=== PATIENT | female | born 1945 ===

== ENCOUNTER → 2021-10-14 12:56 | Outpatient (BNVA) | payer OTHER, SELFPAY | PROVIDERS: PCP Internal Medicine; Visit Provider Nurse Practitioner Family | DX: G43.109 Migraine with aura, not intractable, without status migrainosus (principal); G47.00 Insomnia, unspecified | CPT/HCPCS: 99212 ==

== ENCOUNTER → 2021-12-09 13:09 | Outpatient (BNVA) | payer OTHER, SELFPAY | PROVIDERS: PCP Internal Medicine; Visit Provider Nurse Practitioner Family | DX: G43.109 Migraine with aura, not intractable, without status migrainosus (principal); G47.00 Insomnia, unspecified; Z79.899 Other long term (current) drug therapy | CPT/HCPCS: 99212 ==

== ENCOUNTER → 2022-03-17 14:29 | Outpatient (BNVA) | payer OTHER, SELFPAY | PROVIDERS: PCP Internal Medicine; Visit Provider Nurse Practitioner Family | DX: G43.109 Migraine with aura, not intractable, without status migrainosus (principal); G47.00 Insomnia, unspecified; Z79.899 Other long term (current) drug therapy | CPT/HCPCS: 99212 ==

== ENCOUNTER → 2022-09-20 09:03 | Outpatient (BNVA) | payer OTHER, SELFPAY | PROVIDERS: PCP Internal Medicine; Visit Provider Nurse Practitioner Family | DX: G43.109 Migraine with aura, not intractable, without status migrainosus (principal); G47.00 Insomnia, unspecified; E55.9 Vitamin D deficiency, unspecified | CPT/HCPCS: 99212 ==

== ENCOUNTER → 2022-12-22 08:48 | Outpatient (BNVA) | payer OTHER, SELFPAY | PROVIDERS: PCP Internal Medicine; Visit Provider Nurse Practitioner Family | DX: G43.109 Migraine with aura, not intractable, without status migrainosus (principal); R42 Dizziness and giddiness; Z79.899 Other long term (current) drug therapy | CPT/HCPCS: 99212 ==

== ENCOUNTER 2023-06-28 10:28 | Outpatient (AMB) | payer OTHER, SELFPAY ==
[2023-06-28 10:31] VITALS: BP 114/68; PULSE 79; O2SAT 97; BMI 36.1
--- NOTE | 2023-06-28 10:31 | MHC.OFFVIS ---
Intake Vital Signs 06/28/23 10:31 Height 5 ft Weight 185 lb BMI 36.1 BP 114/68 Blood Pressure Location Rt brachial Position Sitting Pulse 79 Pulse Source Pulse Oximeter Pulse Oximetry (%) 97 Oxygen Delivery Method Room Air Intake Visit Reasons: 6m f/u Migraine - Conf w/daughter Intake Note: Pt presents to the office today for a 6 month follow up for migraines. Pt is here with her [employer] Sandra. Pt states her migraines are better than before. Pt states she thinks the medication is helping. Pt states she does get migraines sometimes but states they arent as bad as before. Allergies ibuprofen [From Motrin] Allergy (Verified 06/28/23 10:34) Rash Medication List - Last Reconciled 06/28/23 by ANNEL Taylor acetaminophen ER 0 mg PO atorvastatin 10 mg PO DAILY cholecalciferol (vitamin D3) 10 mcg PO DAILY 30 days clonazepam 1 mg PO BID PRN diclofenac sodium 1% grams topical BID duloxetine mg PO erenumab-aooe (Aimovig Autoinjector) 140 mg subcut ONCE 1 month gabapentin 300 mg PO BEDTIME 28 days hydromorphone 2 mg PO QID PRN lisinopril 20 mg PO DAILY magnesium oxide 400 mg PO BEDTIME 28 days meclizine 12.5 - 25 mg (1 - 2 x 12.5 mg) PO TID PRN 30 days omeprazole 40 mg PO DAILY riboflavin (vitamin B2) (Vitamin B-2) 200 mg (2 x 100 mg) PO BID 28 days rizatriptan 5 - 10 mg (0.5 - 1 x 10 mg) PO Q2H PRN 21 days trazodone ER 150 mg PO DAILY ubrogepant 50 - 100 mg orally at onset of headache, may repat in 2hrs (max 200mg/day); 30 days HPI HPI Comments History of Present Illness Details 77-yr-old female presents for f/u visit. Pt endorses the following interval medical history changes: 2 months ago- she had a slip and fall resulting in right rib Fxs- feeling better now, but still has some occasional discomfort. 4 months ago- underwent left TKR- has healed well. She is still having bouts of dizziness. Using Meclizine occasionally which helps She is having headache, just occasionally and not as strong. She is tolerating the Aimovig well. She is using Tylenol- which does not always help. Has not used Rizatriptan in some time- forgot about it. Has difficulty falling asleep. Does snore Clonazepam helps some. [facility] Medical History (Updated 06/28/23 @ 11:16 by ANNEL Taylor) Migraine with aura, not intractable, without status migrainosus Insomnia High cholesterol Depression Hypertension Arthritis Surgical History (Updated 06/28/23 @ 11:15 by ANNEL Taylor) History of knee replacement Family History Mother Diabetes Household Members: None Housing: Condominium Alcohol intake: never Patient Tobacco Use Status: Never used Tobacco Review of Systems Const All systems reviewed & are unremarkable except as noted in HPI and below Physical Exam Vital Signs: Last Vital Signs Pulse 79 06/28/23 10:31 BP 114/68 06/28/23 10:31 Pulse Ox 97 06/28/23 10:31 Oxygen Delivery Method Room Air 06/28/23 10:31 BMI result Body Mass Index 36.1 Const General: cooperative and no acute distress Orientation/consciousness: patient oriented x3 HEENT Head: Yes normocephalic Resp Effort & Inspection: normal respiratory effort and able to speak in complete sentences Neuro Other: Slow, steady gatit w/ cane General: patient oriented x3 and CN's II-XI intact bilaterally Cognition (Neuro): normal cognition Motor exam (neuro): 5/5 motor strength present throughout Psych Appearance: grossly normal Mental Status: mental status grossly normal Speech and movement: Normal speech and movement present Affect: normal affect Attitude: cooperative Thought process: Normal thought process present Thought content: Normal thought content present Insight: Good insight present (Psych) Judgement: Good judgement present (Psych) Assessment & Plan Assessment & Plan (1) Migraine with aura, not intractable, without status migrainosus: Code(s): G43.109 - Migraine with aura, not intractable, without status migrainosus (2) Vertigo: Code(s): R42 - Dizziness and giddiness (3) Sleep difficulties: Code(s): G47.9 - Sleep disorder, unspecified Plan For vertigo: Continue Meclizine 12.5-25mg prn ? For migraine prevention: Continue Aimovig 140mg sc q month- as pt has good reduction in migriane attacks/burden. Continue Mag and B2. Previous migraine trials: Amitriptyline- not tolerated. Topiramate- not tolerated. Migraine tx contraindications: BBs d/t h/o asthma. ? For acute migraine treatment: Continue Tylenol prn. Resume Rizatripatn, may adjunct w/ Tylenol. Previous trails- Sumatriptan- ineffective. Fioricet- ineffective. ? For sleep: Continue Clonazepam prn for sleep. Sleep hygiene tips in [facility] shared w/ pt. Future considerations- repeating sleep study. ? f/u in 6 months or sooner prn. Coding Level of Care Code Est Pt Level 4 (50232) Diagnoses Migraine with aura, not intractable, without status migrainosus G43.109 Vertigo R42 Sleep difficulties G47.9
== END 2023-06-28 11:12 | disposition home or self-care (01) ==
PROVIDERS: Visit Provider Nurse Practitioner Family
DX: G43.109 Migraine with aura, not intractable, without status migrainosus (principal); R42 Dizziness and giddiness; G47.9 Sleep disorder, unspecified
CPT/HCPCS: 99214

== ENCOUNTER → 2023-06-28 10:28 | Outpatient (BNVA) | payer OTHER, SELFPAY | PROVIDERS: Visit Provider Nurse Practitioner Family | DX: G43.109 Migraine with aura, not intractable, without status migrainosus (principal); R42 Dizziness and giddiness; G47.9 Sleep disorder, unspecified | CPT/HCPCS: 99212 ==

== ENCOUNTER 2023-11-28 11:09 | Outpatient (AMB) | payer OTHER, SELFPAY ==
--- OUTSIDE RECORDS SUMMARY | 2023-11-28 11:12 | XMS_ITS | Continuity of Care Document ---
Author Organization [facility] Address [address] [place] [address]- Care Team Providers Care Bioanalyst Name Role Phone Blaine Jorgensen MD Primary Care Physician [phone] Encounter [facility] Date(s): 04/26/23 - 08/10/23 [facility] [address] [place], [place] [address] Attending Physician: Blaine Jorgensen MD Allergies, Adverse Reactions, Alerts Substance Reaction Severity Status ibuprofen hives Active penicillin Active Immunizations Given and Recorded Vaccine Date Status Refusal Reason influenza virus vaccine, inactivated 05/11/22 Kirby rded influenza virus vaccine, inactivated 05/14/20 Kirby rded influenza virus vaccine, inactivated 06/17/16 Kirby rded [id number] 12y+ bivalent booster vax 05/11/22 Recorded SARS-CoV-2 (COVID-19) mRNA-1273 vaccine 11/06/20 R ecorded pneumococcal 13-valent vaccine 11/17/16 Recorded tetanus/diphtheria/pertussis, acel(Tdap) 11/17/16 Recorded Medications acetaminophen 325 mg oral tablet 650 mg, By Mouth, Every 6 hours, may take OTC. not to exceed 4000 mg/day, Refills 0, Maintenance, 11/11/22 9:25:00 EDT, Partial fill upon patient request if the prescription is for a schedule II opioid drug. Start Date: 11/11/22 Status: Ordered Aimovig SureClick Autoinjector-aooe 140 mg/mL subcutaneous solution = 140 mg, Subcutaneous Injection, Every 28 days, # 1 kit, 5 Refills, Maintenance, 11/03/22 13:09:00EDT, Partial fill upon patient request if the prescription is for a schedule II opioid drug. Start Date: 11/03/22 Status: Ordered atorvastatin 10 mg oral tablet 1 tablet, By Mouth, Daily at bedtime, # 30 tablet, 11 Refills, Maintenance, 06/10/23 22:21:00 EDT, [facility], 144, cm, 04/26/23 8:51:00 EDT, Height, 86.7, kg, 11/10/22 17:31:00 EDT, Dry Weight Start Date: 06/10/23 Stop Date: 06/04/24 Status: Ordered busPIRone 7.5 mg oral tablet 1 tablet = 7.5 mg, By Mouth, 2 times a day, 0 Refills, Maintenance, 02/21/23 21:24:00 EDT, Partial fill upon patient request if the prescription is for a schedule II opioid drug. Start Date: 02/21/23 Status: Ordered clonazePAM 1 mg oral tablet 0 Refills, Maintenance, 04/26/23 9:00:00 EDT, Partial fill upon patient request if the prescriptionis for a schedule II opioid drug. Start Date: 04/26/23 Status: Ordered diclofenac 1% topical gel 1 application, Topically, 4 times a day, # 100 Gm, 3 Refills, Maintenance, 02/21/23 21:25:00 EDT, Gel, [facility], Partial fill upon patient request if the prescription is for a schedule II opioid drug., 144, cm, 02/21/23 11:05:00 EDT, Hei... Start Date: 02/21/23 Status: Ordered docusate sodium 100 mg oral tablet = 100 mg, By Mouth, 2 times a day, # 60 tablet, 0 Refills, Maintenance, 11/12/22 9:06:00 EDT, Tablet, [facility] 3, Partial fill upon patient request if the prescription is for a scheduleII opioid drug., 144, cm, 11/12/22 8:51:00 EDT, Hei... Start Date: 11/12/22 Stop Date: 12/12/22 Status: Ordered duloxetine 60 mg oral enteric coated capsule 1 capsule = 60 mg, By Mouth, Daily, # 7 capsule, 0 Refills, Maintenance, 11/12/22 8:47:00 EDT, Capsule, Partial fill upon patient request if the prescription is for a schedule II opioid drug. Start Date: 11/12/22 Stop Date: 11/19/22 Status: Ordered gabapentin 300 mg oral capsule 300 mg, 1, capsule, By Mouth, 2 times a day, # 14 capsule, Refills 0, Tot. Refills 0, Maintenance, 11/12/22 8:44:00 EDT, Print Requisition, Partial fill upon patient request if the prescription is for a schedule II opioid drug. Start Date: 11/12/22 Stop Date: 11/19/22 Status: Ordered lisinopril 20 mg oral tablet See Instructions, TAKE 1 TABLET BY MOUTH DAILY., # 28 tablet, Refills 11, Tot. Refills 11, Maintenance, 02/21/23 21:20:00 EDT, Instructions Replace Required Details, Route to Pharmacy Electronically,[facility], 144, cm, 02/21/23 11:05:0... Start Date: 02/21/23 Status: Ordered magnesium oxide 400 mg (240 mg elemental magnesium) oral tablet 1 tablet = 400 mg, By Mouth, Daily, # 100 tablet, 0 Refills, Maintenance, 04/21/20 11:37:00 EDT, Tablet Start Date: 04/21/20 Status: Ordered meclizine 12.5 mg oral tablet 1 tablet = 12.5 mg, By Mouth, 3 times a day, PRN for dizziness, # 90 tablet, 1 Refills, Maintenance, 04/26/23 9:06:00 EDT, Tablet, [facility], 144, cm, 04/26/23 8:51:00 EDT, Height, 86.7, kg, 11/10/22 17:31:00 EDT, Dry Weight Start Date: 04/26/23 Status: Ordered omeprazole 40 mg oral enteric coated capsule 1 capsule = 40 mg, By Mouth, Daily, # 90 capsule, 1 Refills, Maintenance, 08/04/23 17:00:00 EST, ECCapsule, [facility], Partial fill upon patient request if the prescription is for aschedule II opioid drug., 144, cm, 04/26/23 8:51:00 EDT... Start Date: 08/04/23 Status: Ordered ProAir HFA 90 mcg/inh inhalation aerosol with adapter 180 mcg, 2, puffs, Inhalation, 4 times a day, # 18 Gm, Refills 6, Tot. Refills 6, Maintenance, 09/24/21 9:02:00 EST, Inhaler, Route to Pharmacy Electronically, [id number], [facility], 152.2, cm, 11/11/20 12:47:00... Start Date: 09/24/21 Status: Ordered Restasis 0.05% ophthalmic emulsion 1 drops, Eyes, Both, Every 12 hours, 0 Refills, Maintenance, 03/08/16 16:09:42 Start Date: 03/08/16 Status: Ordered traZODone 150 mg oral tablet 1 tablet = 150 mg, By Mouth, Daily at bedtime, # 7 tablet, 0 Refills, Maintenance, 11/12/22 8:45:00EDT, Tablet, Partial fill upon patient request if the prescription is for a schedule II opioid drug. Start Date: 11/12/22 Stop Date: 11/19/22 Status: Ordered VITAMIN B-2 TAB 100MG VITAMIN B-2 TAB 100MG, 0 Refills, Maintenance, one daily, 02/21/23 21:24:00 EDT Start Date: 02/21/23 Status: Ordered VITAMIN D3 1,000 UNIT SOFTGEL VITAMIN D3 1,000 UNIT SOFTGEL, 0 Refills, Maintenance, one daily, 02/21/23 21:24:00 EDT Start Date: 02/21/23 Status: Ordered Problem List Condition Confirmation Course Effective Dates Status H ealth Status Informant Anxiety Confirmed Active Weakness generalized Confirmed Active Asthma Confirmed Active Risk for falls Confirmed Active Chronic back pain Confirmed Active Constipation Confirmed Active Depression Confirmed Active Diverticulosis ( and Diverticulitis ) Confirmed 01/22/15 Active GERD (gastroesophageal reflux disease) Confirmed Active Glaucoma Confirmed Active H/O osteopenia Confirmed Active History of tonsillectomy Confirmed Active Hyperlipidemia Confirmed Active HBP (high blood pressure) Confirmed Active Hypertension Confirmed Active Glucose intolerance (impaired glucose tolerance) Confirmed Active Migraine with myofascial component Confirmed 01/05/16 Active MCI (mild cognitive impairment) Confirmed 06/05/15 Active Morbid obesity, BMI unknown Confirmed Active Nephrolithiasis Confirmed Active Osteoarthritis of knee R TKR Confirmed Active Osteoarthritis of left knee Confirmed Active Severe obesity Confirmed Active Social History Social History Type Response Smoking Status Never smoker entered on: 05/13/15 Sex Patient Care team information Care Team Personnel Name: Blaine Jorgensen MD Position: [facility] Physician - Primary Care Member Role: PCP Address: Address: [address] [place] [address] Adult & Pediatric [place], [place] [address] Name: Oanh Leon RN Position: S RN Member Role: Primary Care Nurse Name: Senia Orozco RN Position: [facility] RN Member Role: Primary Care Nurse Name: Ro Chao RN Position: [facility] RN Member Role: Primary Care Nurse Care Team Related Persons Name: KEI ALMARAZ Address: [place] [address] Name: JAMES ALMARAZ Address: [address] [address]
--- OUTSIDE RECORDS SUMMARY | 2023-11-28 11:12 | XMS_ITS | Continuity of Care Document ---
Author Organization [facility] Address [address] [place] [address]- Care Team Providers Care Container Crane Operator Name Role Phone Joslyn WASHINGTON, Blaine Baker Primary Care Physician Encounter [facility] Date(s): 06/09/23 - 07/09/23 [facility] [address] [place], [place] [address] Allergies, Adverse Reactions, Alerts Substance Reaction Severity Status ibuprofen hives Active penicillin Active Immunizations Given and Recorded Vaccine Date Status Refusal Reason influenza virus vaccine, inactivated 05/11/22 Kirby rded influenza virus vaccine, inactivated 05/14/20 Kirby rded influenza virus vaccine, inactivated 06/17/16 Kirby rded [id number] 12y+ bivalent booster vax 05/11/22 Recorded SARS-CoV-2 [...] 0 Refills, Maintenance, 11/12/22 9:06:00 EDT, Tablet, [facility] 3, Partial fill upon patient request [...] Required Details, Route to Pharmacy Electronically,[facility], 144, cm, 02/21/23 11:05:0... Start Date: [...] Daily, # 90 capsule, 1 Refills, Maintenance, 02/17/23 16:24:00 EDT, ECCapsule, [facility], Partial fill upon patient request if the prescription is for aschedule II opioid drug., 144, cm, 11/13/22 6:44:00 EDT... Start Date: 02/17/23 Status: Ordered ProAir HFA 90 mcg/inh inhalation aerosol with adapter 180 mcg, 2, puffs, Inhalation, 4 times a day, # 18 Gm, Refills 6, Tot. Refills 6, Maintenance, 09/24/21 9:02:00 EST, Inhaler, Route to Pharmacy Electronically, [id number], [facility], 152.2, cm, 11/11/20 12:47:00... [...] Team Personnel Name: Blaine Jorgensen MD Position: [facility] Physician - Primary Care Member Role: PCP Address: Address: [address] [place] [address] Adult & Pediatric Medicine [place], [place] [address] Name: Oanh Leon RN Position: S RN Member Role: Primary Care Nurse Name: Senia Orozco RN Position: S RN Member Role: Primary Care Nurse Name: Ro Chao RN Position: S RN Member Role: Primary Care Nurse Care Team Related Persons Name: KEI ALMARAZ Address: [place] [address] Name: JAMES ALMARAZ Address: [address] [address]
--- OUTSIDE RECORDS SUMMARY | 2023-11-28 11:12 | XMS_ITS | Continuity of Care Document ---
Author Organization [facility] Address [address] [place] [address]- Care Team Providers Care Airfield Services Officer Name Role Phone Blaine Jorgensen MD Primary Care Physician Encounter [facility] Date(s): 02/21/23 - 03/23/23 [facility] [address] [place], [place] [address] Allergies, Adverse Reactions, Alerts Substance Reaction Severity Status ibuprofen hives Active penicillin Active Immunizations Given and Recorded Vaccine Date Status Refusal Reason influenza virus vaccine, inactivated 05/11/22 Ikrby rded influenza virus vaccine, inactivated 05/14/20 Kirby rded influenza virus vaccine, inactivated 06/17/16 Kirby rded [id number] 12y+ bivalent booster vax 05/11/22 Recorded SARS-CoV-2 [...] Status: Ordered atorvastatin 10 mg oral tablet See Instructions, TAKE 1 TABLET BY MOUTH DAILY AT BEDTIME, # 28 tablet, 5 Refills, Maintenance, 12/24/22 13:56:00 EDT, [facility], 144, cm, 11/13/22 6:44:00 EDT, Height, 86.7, kg, 11/10/22 17:31:00 EDT, Dry Weight Start Date: 12/24/22 Status: Ordered busPIRone 7.5 mg oral tablet 1 tablet = 7.5 mg, By Mouth, 2 times a day, 0 Refills, Maintenance, 02/21/23 21:24:00 EDT, Partial fill upon patient request if the prescription is for a schedule II opioid drug. Start Date: 02/21/23 Status: Ordered diclofenac 1% topical gel 1 [...] 0 Refills, Maintenance, 11/12/22 9:06:00 EDT, Tablet, [facility] 3, Partial fill upon patient request [...] Required Details, Route to Pharmacy Electronically,[facility], 144, cm, 02/21/23 11:05:0... Start Date: 02/21/23 [...] day, PRN for dizziness, # 90 tablet, 0 Refills, Maintenance, 02/21/23 11:43:00 EDT, Tablet, [facility], 144, cm, 02/21/23 11:05:00 EDT, Height,86.7, kg, 11/10/22 17:31:00 EDT, Dry Weight Start Date: 02/21/23 Status: Ordered omeprazole 40 mg oral enteric [...] 9:02:00 EST, Inhaler, Route to Pharmacy Electronically, [id number], [facility], 152.2, cm, 11/11/20 12:47:00... [...] of left knee Confirmed Active Severe obesity (BMI 35.0-39.9) with comorbidity Confirmed Active Social History Social History Type Response Smoking Status Never smoker entered on: 05/13/15 Sex Patient Care team information Care Team Personnel Name: Blaine Jorgensen MD Position: S Physician - Primary Care Member Role: PCP Address: Address: [address] [place] [address] Adult & [place] [address]- Name: Oanh Leon RN Position: S RN Member Role: Primary Care Nurse Name: Senia Orozco RN Position: S RN Member Role: Primary Care Nurse Name: Ro Chao RN Position: [facility] RN Member Role: Primary Care Nurse Care Team Related Persons Name: RUFINA KEI Address: [place] [address] Name: JAMES ALMARAZ Address: [place] [address]
--- OUTSIDE RECORDS SUMMARY | 2023-11-28 11:12 | XMS_ITS | Continuity of Care Document ---
Author Organization [facility] Address [address] [place] [address]- Care Team Providers Care Bacteriologist Fishery Name Role Phone Blaine Jorgensen MD Primary Care Physician [phone] Encounter [facility] Date(s): 02/07/23 - 03/09/23 [facility] [address] [place], [place] [address] Allergies, Adverse Reactions, Alerts Substance Reaction Severity Status ibuprofen hives Active penicillin Active Immunizations Given and Recorded Vaccine Date Status Refusal Reason influenza virus vaccine, inactivated 05/11/22 Kirby rded influenza virus vaccine, inactivated 05/14/20 Kirby rded influenza virus vaccine, inactivated 06/17/16 Kirby rded [id number] 12y+ bivalent booster vax 05/11/22 Recorded SARS-CoV-2 [...] Refills, Maintenance, 12/24/22 13:56:00 EDT, [facility], 144, cm, 11/13/22 6:44:00 EDT, Height, [...] 0 Refills, Maintenance, 11/12/22 9:06:00 EDT, Tablet, [facility] 3, Partial fill upon patient request [...] Required Details, Route to Pharmacy Electronically,[facility], 144, cm, 02/21/23 11:05:0... Start Date: [...] 9:02:00 EST, Inhaler, Route to Pharmacy Electronically, [id number], [facility], 152.2, cm, 11/11/20 12:47:00... [...] Primary Care Member Role: PCP Address: Address: [address] [place] [address] Adult [place] [address]- Name: Oanh Leon RN Position: S RN Member Role: Primary Care Nurse Name: Senia Orozco RN Position: S RN Member Role: Primary Care Nurse Name: Ro Chao RN Position: [facility] RN Member Role: Primary Care Nurse Care Team Related Persons Name: RUFINA KEI Address: [place] [address] Name: JAMES ALMARAZ Address: [place] [address]
--- OUTSIDE RECORDS SUMMARY | 2023-11-28 11:13 | XMS_ITS | Continuity of Care Document ---
Author Organization [facility] Address [address] [place] [address]- Care Team Providers Care Wig Dresser Name Role Phone Blaine Jorgensen MD Primary Care Physician Encounter [facility] Date(s): 07/11/23 - 08/10/23 [facility] [address] [place], [place] [address] Attending Physician: Ronaldo Dela Cruz Admitting Physician: Ronaldo Dela Cruz Referring Physician: AdmtrRonaldo Allergies, Adverse Reactions, Alerts Substance Reaction Severity Status ibuprofen hives Active penicillin Active Immunizations Given and Recorded Vaccine Date Status Refusal Reason influenza virus vaccine, inactivated 05/11/22 Kirby rded influenza virus vaccine, inactivated 05/14/20 Kirby rded influenza virus vaccine, inactivated 06/17/16 Kirby rded [id number] 12y+ bivalent booster vax 05/11/22 Recorded SARS-CoV-2 [...] Refills, Maintenance, 11/12/22 9:06:00 EDT, Tablet, [facility] 3, Partial fill upon patient [...] Required Details, Route to Pharmacy Electronically,[facility], 144, cm, 02/21/23 11:05:0... Start Date: 02/21/23 [...] 9:02:00 EST, Inhaler, Route to Pharmacy Electronically, [id number], [facility], 152.2, cm, 11/11/20 12:47:00... [...] Status Never smoker entered on: 05/13/15 Sex Radiology * Event Display: X-Ray Shoulder, Non- Authored Date: * Event Display: X-Ray Ankle/Foot, Non- Authored Date: MG Breast Views * Event Display: MM Mammogram Authored Date: * Event Display: MM Mammogram, Non- Authored Date: Patient Care team information Care Team Personnel Name: Blaine Jorgensen MD Position: [facility] Physician - Primary Care Member Role: PCP Address: Address: [address] [place] [address] Adult & [place] [address]- Name: Oanh Leon RN Position: S RN Member Role: Primary Care Nurse Name: Senia Orozco RN Position: [facility] RN Member Role: Primary Care Nurse Name: Ro Chao RN Position: [facility] RN Member Role: Primary Care Nurse Care Team Related Persons Name: KEI ALMARAZ Address: [place] [address] Name: JAMES ALMARAZ Address: [address] [address]
--- OUTSIDE RECORDS SUMMARY | 2023-11-28 11:13 | XMS_ITS | Continuity of Care Document ---
Author Organization [facility] Address [address] [place] [address]- Care Team Providers Care Cracker Off Name Role Phone Lj [place], Angela Primary Care Physician [phone] [place] [facility] [place]24[place]22 - 01/23/23 [facility] [address] [place] [address]- Allergies, Adverse Reactions, Alerts Substance Reaction Severity Status ibuprofen hives Active penicillin Active Immunizations Given and Recorded Vaccine Date Status Refusal Reason influenza virus vaccine, inactivated 05/11/22 Kirby rded influenza virus vaccine, inactivated 05/14/20 Kirby rded influenza virus vaccine, inactivated 06/17/16 Kirby rded [id number] 12y+ bivalent booster vax 05/11/22 Recorded SARS-CoV-2 [...] Refills, Maintenance, 12/24/22 13:56:00 EDT, [facility], 144, cm, 11/13/22 6:44:00 EDT, Height, 86.7, kg, 11/10/22 17:31:00 EDT, Dry Weight Start Date: 12/24/22 Status: Ordered clonazePAM 1 mg oral tablet 1 tablet = 1 mg, By Mouth, Daily, PRN Anxiety, # 7 tablet, 0 Refills, Maintenance, 11/12/22 8:46:00EDT, Tablet, Partial fill upon patient request if the prescription is for a schedule II opioid drug. Start Date: 11/12/22 Stop Date: 11/19/22 Status: Ordered clonazePAM 1 mg oral tablet 1 tablet = 1 mg, By Mouth, Daily, PRN Anxiety, 0 Refills, Maintenance, 11/11/22 9:25:00 EDT, Tablet, Partial fill upon patient request if the prescription is for a schedule II opioid drug. Start Date: 11/11/22 Status: Ordered Colace Capsule 100 mg, 1, capsule, By Mouth, 2 times a day, Refills 0, Maintenance, 11/12/22 9:05:00 EDT, Partial fill upon patient request if the prescription is for a schedule II opioid drug. Start Date: 11/12/22 Status: Ordered diclofenac 1% topical gel 1 application, Topically, 4 times a day, # 100 Gm, 0 Refills, Maintenance, 11/23/22 16:04:00 EDT, Gel, [facility], Partial fill upon patient request if the prescription is for a schedule II opioid drug., 144, cm, 11/13/22 6:44:00 EDT, Heig... Start Date: 11/23/22 Status: Ordered docusate sodium 100 mg oral tablet = 100 mg, By Mouth, 2 times a day, # 60 tablet, 0 Refills, Maintenance, 11/12/22 9:06:00 EDT, Tablet, [facility], Partial fill upon patient request if the prescription is for a scheduleII opioid drug., 144, cm, 11/12/22 8:51:00 EDT, Hei... Start Date: 11/12/22 Stop Date: 12/12/22 Status: Ordered duloxetine 60 mg oral enteric coated capsule 1 capsule = 60 mg, By Mouth, 2 times a day, # 14 capsule, 0 Refills, Maintenance, 11/12/22 8:47:00 EDT, Capsule, Partial fill upon patient request if the prescription is for a schedule II opioid drug. Start Date: 11/12/22 Stop Date: 11/19/22 Status: Ordered Ecotrin 325 mg oral delayed release tablet 1 tablet = 325 mg, By Mouth, 2 times a day, # 60 tablet, 0 Refills, Maintenance, 11/11/22 9:24:00 EDT, EC Tablet, [facility] 3, Partial fill upon patient request if the prescription is for a schedule II opioid drug., 144, cm, 11/11/22 7:20... Start Date: 11/11/22 Stop Date: 12/11/22 Status: Ordered FeroSul 325 mg oral tablet 1 tablet = 325 mg, By Mouth, 3 times a day, # 90 tablet, 0 Refills, Maintenance, 04/21/20 11:36:00 EDT, Tablet Start Date: 04/21/20 Status: Ordered gabapentin 300 mg oral capsule 300 mg, 1, capsule, By Mouth, 2 times a day, Refills 0, Maintenance, 04/21/20 11:36:00 EDT Start Date: 04/21/20 Status: Ordered gabapentin 300 mg oral capsule 300 mg, 1, capsule, By Mouth, 2 times a day, # 14 capsule, Refills 0, Tot. Refills 0, Maintenance, 11/12/22 8:44:00 EDT, Print Requisition, Partial fill upon patient request if the prescription is for a schedule II opioid drug. Start Date: 11/12/22 Stop Date: 11/19/22 Status: Ordered HYDROmorphone 2 mg oral tablet 1 tablet = 2 mg, By Mouth, Every 4 hours, PRN as needed for pain, # 12 tablet, 0 Refills, Maintenance, 11/28/22 12:25:00 EDT, Tablet, [facility] #[id number], Partial fill upon patient request if the prescription is for a schedule II opioid drug., 144, cm,... Start Date: 11/28/22 Stop Date: 12/01/22 Status: Ordered lisinopril 20 mg oral tablet 20 mg, 1, tablet, By Mouth, Daily, Refills 0, Maintenance, 11/11/22 9:25:00 EDT, Partial fill upon patient request if the prescription is for a schedule II opioid drug. Start Date: 11/11/22 Status: Ordered magnesium oxide 400 mg (240 mg elemental magnesium) oral tablet 1 tablet = 400 mg, By Mouth, Daily, # 100 tablet, 0 Refills, Maintenance, 04/21/20 11:37:00 EDT, Tablet Start Date: 04/21/20 Status: Ordered MiraLax Powder 1 pack/packet = 17 Gm, By Mouth, Daily, PRN Constipation, 0 Refills, Maintenance, 11/11/22 9:26:00 EDT, Powder, Partial fill upon patient request if the prescription is for a schedule II opioid drug. Start Date: 11/11/22 Status: Ordered omeprazole 40 mg oral enteric coated capsule 1 capsule = 40 mg, By Mouth, Daily, # 90 capsule, 1 Refills, Maintenance, 09/30/22 15:58:00 EST, ECCapsule, [facility], Partial fill upon patient request if the prescription is for aschedule II opioid drug., 152.2, cm, 09/30/22 15:33:00... Start Date: 09/30/22 Status: Ordered ProAir HFA 90 mcg/inh inhalation aerosol with adapter 180 mcg, 2, puffs, Inhalation, 4 times a day, # 18 Gm, Refills 6, Tot. Refills 6, Maintenance, 09/24/21 9:02:00 EST, Inhaler, Route to Pharmacy Electronically, [id number], [facility], 152.2, cm, 11/11/20 12:47:00... Start Date: 09/24/21 Status: Ordered Restasis 0.05% ophthalmic emulsion 1 drops, Eyes, Both, Every 12 hours, 0 Refills, Maintenance, 03/08/16 16:09:42 Start Date: 03/08/16 Status: Ordered senna 187 mg oral tablet 1 tablet = 8.6 mg, By Mouth, Daily at bedtime, PRN as needed for constipation, 0 Refills, Maintenance, 11/11/22 9:26:00 EDT, Tablet, Partial fill upon patient request if the prescription is for a schedule II opioid drug. Start Date: 11/11/22 Status: Ordered tiZANidine 2 mg oral tablet 2 mg, 1, tablet, By Mouth, Every 8 hours, PRN, # 21 tablet, Refills 0, Tot. Refills 0, Maintenance,as needed for muscle spasm, 11/12/22 8:43:00 EDT, Print Requisition, Partial fill upon patient request if the prescription is for a schedule II opioid... Start Date: 11/12/22 Stop Date: 11/19/22 Status: Ordered traZODone 150 mg oral tablet 1 tablet = 150 mg, By Mouth, Daily at bedtime, # 7 tablet, 0 Refills, Maintenance, 11/12/22 8:45:00EDT, Tablet, Partial fill upon patient request if the prescription is for a schedule II opioid drug. Start Date: 11/12/22 Stop Date: 11/19/22 Status: Ordered traZODone 50 mg oral tablet 150 mg, 3, tablet, By Mouth, Daily at bedtime, PRN, Refills 0, Maintenance, Insomnia, 11/11/22 9:26:00 EDT, Partial fill upon patient request if the prescription is for a schedule II opioid drug. Start Date: 11/11/22 Status: Ordered Problem List Condition Confirmation Course [...] Care team information Care Team Personnel Name: Oanh Leon RN Position: [facility] RN Member Role: Primary Care Nurse Name: Senia Orozco RN Position: [facility] RN Member Role: Primary Care Nurse Name: Angela Calhoun MD Position: [facility] Physician - Primary Care Member Role: PCP Address: Address: [address] [place] [address] Adult & Pediatric Medicine [place], [place] [address] Name: Ro Chao RN Position: [facility] RN Member Role: Primary Care Nurse Care Team Related Persons Name: KEI ALMARAZ Address: [place] [address] Name: JAMES ALMARAZ Address: [address] [address]
--- OUTSIDE RECORDS SUMMARY | 2023-11-28 11:13 | XMS_ITS | Continuity of Care Document ---
Author Organization [facility] Address [address] [place] [address]- Care Team Providers Care Tube Mounter Name Role Phone Lj [place], Angela Primary Care Physician Encounter [facility] [place] Date(s): 12/16/22 - 01/16/23 [facility] [address] [place], [place] [address] Attending Physician: Leon Herrera MD Allergies, Adverse Reactions, Alerts Substance Reaction Severity Status ibuprofen hives Active penicillin Active Immunizations Given and Recorded Vaccine Date Status Refusal Reason influenza virus vaccine, inactivated 05/11/22 Kirby rded influenza virus vaccine, inactivated 05/14/20 Kirby rded influenza virus vaccine, inactivated 06/17/16 Kibry rded [id number] 12y+ bivalent booster vax 05/11/22 Recorded SARS-CoV-2 [...] Refills, Maintenance, 12/24/22 13:56:00 EDT, [facility], 144, cm, 11/13/22 6:44:00 EDT, Height, [...] 0 Refills, Maintenance, 11/12/22 9:06:00 EDT, Tablet, [facility] 3, Partial fill upon patient [...] Refills, Maintenance, 11/11/22 9:24:00 EDT, EC Tablet, [facility], Partial fill upon patient [...] 0 Refills, Maintenance, 11/28/22 12:25:00 EDT, Tablet, [facility]/pharmacy #[id number], Partial fill upon patient request if [...] 9:02:00 EST, Inhaler, Route to Pharmacy Electronically, [id number], [facility], 152.2, cm, 11/11/20 12:47:00... [...] Response Smoking Status Never smoker entered on: 10/6/15 Sex Patient Care team information Care Team Personnel Name: Oanh Leon RN Position: [facility] RN Member Role: Primary Care Nurse Name: Senia Orozco RN Position: S RN Member Role: Primary Care Nurse Name: Angela Calhoun MD Position: [facility] Physician - Primary Care Member Role: PCP Address: Address: [address] [place] [address] Adult [place] [address]- Name: Ro Chao RN Position: [facility] RN Member Role: Primary Care Nurse Care Team Related Persons Name: KEI ALMARAZ Address: [place] [address] Name: JAMES ALMARAZ Address: [address] [address]
--- OUTSIDE RECORDS SUMMARY | 2023-11-28 11:13 | XMS_ITS | Continuity of Care Document ---
Author Organization [facility] Address [address] [place] [address]- Care Team Providers Care Aircraft Refueller Name Role Phone Blaine Jorgensen MD Primary Care Physician Encounter [facility] Date(s): 08/31/23 - 09/30/23 [facility] [address] [place], [place] [address] Allergies, Adverse Reactions, Alerts Substance Reaction Severity Status ibuprofen hives Active penicillin Active Immunizations Given and Recorded Vaccine Date Status Refusal Reason influenza virus vaccine, inactivated 05/11/22 Kirby rded influenza virus vaccine, inactivated 05/14/20 Kirby rded influenza virus vaccine, inactivated 06/17/16 Kirby rded [id number] 12y+ bivalent booster vax 05/11/22 Recorded SARS-CoV-2 [...] 0 Refills, Maintenance, 11/12/22 9:06:00 EDT, Tablet, [facility] 3, Partial fill upon patient request if [...] Required Details, Route to Pharmacy Electronically[facility], [facility], cm, 02/21/23 11:05:0... Start Date: 02/21/23 Status: Ordered magnesium oxide 400 mg (240 mg elemental magnesium) oral tablet 1 tablet = 400 mg, By Mouth, Daily, # 100 tablet, 0 Refills, Maintenance, 04/21/20 11:37:00 EDT, Tablet Start Date: 04/21/20 Status: Ordered meclizine 12.5 mg oral tablet 1 tablet, By Mouth, 3 times a day, PRN NEEDED FOR DIZZINESS, # 90 tablet, 1 Refills, Maintenance, 09/05/23 9:22:00 EST, [facility], 144, cm, 09/05/23 9:21:00 EST, Height, 86.7, kg,11/10/22 17:31:00 EDT, Dry Weight Start Date: 09/05/23 Status: Ordered Metamucil 3.4 gm/5.2 gm oral powder for reconstitution = 1.7 Gm, By Mouth, Daily, dissolve in 8 oz of fluid, # 425 Gm, 11 Refills, Maintenance, 09/05/23 9:24:00 EST, REC Powder, Partial fill upon patient request if the prescription is for a schedule II opioid drug. Start Date: 09/05/23 Status: Ordered omeprazole 40 mg oral enteric [...] 9:02:00 EST, Inhaler, Route to Pharmacy Electronically, [id number], [facility], 152.2, cm, 11/11/20 12:47:00... [...] Team Personnel Name: Blaine Jorgensen MD Position: [facility] Physician - Primary Care Member Role: PCP Address: Address: [address] [place] [address] Adult & Pediatric Medicine [address] Name: Oanh Leon RN Position: S RN Member Role: Primary Care Nurse Name: Senia Orozco RN Position: [facility] RN Member Role: Primary Care Nurse Name: Ro Chao RN Position: [facility] RN Member Role: Primary Care Nurse Care Team Related Persons Name: KEI ALMARAZ Address: [place] [address] Name: JAMES ALMARAZ Address: [address] [address]
--- OUTSIDE RECORDS SUMMARY | 2023-11-28 11:13 | XMS_ITS | Continuity of Care Document ---
Author Organization [facility] Address [address] [place] [address]- Care Team Providers Care Travel Pta Name Role Phone Blaine Jorgensen MD Primary Care Physician [phone] [id number]12[facility] [address] [place] [address]- Attending Physician: Blaine Jorgensen MD Allergies, Adverse Reactions, Alerts Substance Reaction Severity Status ibuprofen hives Active penicillin Active Immunizations Given and Recorded Vaccine Date Status Refusal Reason influenza virus vaccine, inactivated 05/11/22 Kirby rded influenza virus vaccine, inactivated 05/14/20 Kirby rded influenza virus vaccine, inactivated 06/17/16 Kirby rded [id number] 12y+ bivalent booster vax 05/11/22 Recorded SARS-CoV-2 [...] 0 Refills, Maintenance, 11/12/22 9:06:00 EDT, Tablet, [facility] 3, Partial fill upon patient request [...] Required Details, Route to Pharmacy Electronically,[facility], 144, cm, 02/21/23 11:05:0... Start [...] 9:02:00 EST, Inhaler, Route to Pharmacy Electronically, [id number], [facility], 152.2, cm, 11/11/20 12:47:00... [...] knee Confirmed Active Severe obesity Confirmed Active Vital Signs Most recent to oldest [Reference Range]: 1 2 Height 144 cm (09/05/23 9:21 AM) 144 cm (09/05/23 8:30 AM) Weight 88.5 kg (09/05/23 8:30 AM) Oxygen Saturation [94-100 %] 95 % (09/05/23 8:30 AM) Pulse Rate [55-90 bpm] 95 bpm *H* (09/05/23 8:30 AM) Body Mass Index [18.5-24.99 kg/m2] 42.68 kg/m2 *>HHI* (09/05/23 8:30 AM) Blood Pressure [90-138/55-84 mm Hg] 98/6 8mm Hg (09/05/23 9:21 AM) 140/70mm Hg *H* (09/05/23 8:30 AM) Mode of Delivery (Oxygen) Room air (09/05/23 8:30 AM) Blood pressure sites Arm, left (09/05/23 8:30 AM) Weight Obtained Via Standing scale (09/05/23 8:30 AM) Social History Social History Type Response Smoking Status Never smoker entered on: 05/13/15 Sex Patient Care team information Care Team Personnel Name: Blaine Jorgensen MD Position: [facility] Physician - Primary Care Member Role: PCP Address: Address: [address] [place] [address] Adult & Pediatric Medicine [place], [place] [address] Name: Oanh Leon RN Position: S RN Member Role: Primary Care Nurse Name: Senia Orozco RN Position: [facility] RN Member Role: Primary Care Nurse Name: Ro Chao RN Position: [facility] RN Member Role: Primary Care Nurse Care Team Related Persons Name: RUFINAROZINAET Address: [place] [address] Name: JAMES ALMARAZ Address: [address] [address]
--- OUTSIDE RECORDS SUMMARY | 2023-11-28 11:13 | XMS_ITS | Continuity of Care Document ---
Author Organization [facility] Address [address] [place] [address]- Care Team Providers Care Refrigeration Installer Name Role Phone Blaine Jorgensen MD Primary Care Physician Encounter [facility] Date(s): 02/21/23 - 02/28/23 [facility] [address] [place], [place] [address] Attending Physician: Blaine Jorgensen MD Referring Physician: Angela Calhoun MD Allergies, Adverse Reactions, Alerts Substance Reaction Severity Status ibuprofen hives Active penicillin Active Immunizations Given and Recorded Vaccine Date Status Refusal Reason influenza virus vaccine, inactivated 05/11/22 Kirby rded influenza virus vaccine, inactivated 05/14/20 Kirby rded influenza virus vaccine, inactivated 06/17/16 Kirby rded [id number] 12y+ bivalent booster vax 05/11/22 Recorded SARS-CoV-2 [...] Refills, Maintenance, 12/24/22 13:56:00 EDT, [facility], 144, cm, 11/13/22 6:44:00 EDT, Height, [...] 0 Refills, Maintenance, 11/12/22 9:06:00 EDT, Tablet, [facility] 3, Partial fill upon patient request if [...] Required Details, Route to Pharmacy Electronically,[facility], 144, cm, 02/21/23 11:05:0... Start Date: [...] 9:02:00 EST, Inhaler, Route to Pharmacy Electronically, [id number], [facility], 152.2, cm, 11/11/20 12:47:00... [...] obesity (BMI 35.0-39.9) with comorbidity Confirmed Active Vital Signs Most recent to oldest [Reference Range]: 1 Height 144 cm (02/21/23 11:05 AM) Weight 81.8 kg (02/21/23 11:05 AM) Pulse Rate [55-90 bpm] 80 bpm (02/21/23 11:05 AM) Body Mass Index [18.5-24.99 kg/m2] 39.45 kg/m2 *>HHI* (02/21/23 11:05 AM) Blood Pressure [90-138/55-84 mm Hg] 121/ 79mm Hg (02/21/23 11:05 AM) Blood pressure sites Arm, left (02/21/23 11:05 AM) Weight Obtained Via Standing scale (02/21/23 11:05 AM) Social History Social History Type Response Smoking Status Never smoker entered on: 05/13/15 Sex Note * Vanita Khoury: PERFORM, SIGN, VERIFY Event Display: Patient Education/Instruction Authored Date: [id number] [facility] *[facility] Clinical Summary Name MARI ALMARAZ Age 77 Years 1945 PCP Angela Calhoun MD PCP Visit Date 02/21/2023 10:56:00 Additional Instructions: Scheduled Appointments?? Future Appointments ?*No[facility]Adult[facility]Ped ?[address]??[place],??[place],??[address] ?Phone:??--?Fax:??-- ?Appt. Date:??04/26/2023?8:40 AM ?Scheduled Provider:??Joslyn WASHINGTON, Blaine Baker Follow-Up Instructions ?? Diagnosis Migraine, unspecified, not intractable, without status migrainosus; Hyperlipidemia, unspecified; Essential (primary) hypertension; Unspecified asthma, uncomplicated; Unilateral primary osteoarthritis, unspecified knee; Impaired glucose tolerance (oral) Medications: Please continue your medications until treatment is completed or stopped by your provider. Discuss any questions related to medications with your provider. New Medications [facility], [address] [place] [id number], [phone] Meclizine (meclizine 12.5 mg oral tablet) 1 tab(s) Oral 3 times a day as needed for dizziness. Refills: 0. Next Dose: Medications to Continue with No Changes These medications were not printed or sent to your pharmacy Acetaminophen (acetaminophen 325 mg oral tablet) 650 Milligram Oral every 6 hours. may take OTC. not to exceed 4000 mg/day. Next Dose: Albuterol (ProAir HFA 90 mcg/inh inhalation aerosol with adapter) 2 puff(s) Inhalation 4 times a day. Refills: 6. Next Dose: Aspirin (Ecotrin 325 mg oral delayed release tablet) 1 tab(s) Oral twice a day for 30 Days. Refills: 0. Next Dose: Atorvastatin (atorvastatin 10 mg oral tablet) TAKE 1 TABLET BY MOUTH DAILY AT BEDTIME. Refills: 5. Next Dose: Clonazepam (clonazePAM 1 mg oral tablet) 1 tab(s) Oral Daily as needed Anxiety. Next Dose: Clonazepam (clonazePAM 1 mg oral tablet) 1 tab(s) Oral Daily as needed Anxiety for 7 Days. Refills:0. Next Dose: Cyclosporine Ophthalmic (Restasis 0.05% ophthalmic emulsion) 1 Drops Both eyes every 12 hours. Next Dose: Diclofenac Topical (diclofenac 1% topical gel) 1 lin Topically 4 times a day. Refills: 0. Next Dose: Docusate (Colace Capsule) 100 Milligram Oral twice a day. Next Dose: Docusate (docusate sodium 100 mg oral tablet) 100 Milligram Oral twice a day for 30 Days. Refills: 0. Next Dose: Duloxetine (duloxetine 60 mg oral enteric coated capsule) 1 capsule Oral twice a day for 7 Days. Refills: 0. Next Dose: erenumab (Aimovig SureClick Autoinjector-aooe 140 mg/mL subcutaneous solution) 140 Milligram Subcutaneous Injection Every 28 days. Next Dose: Ferrous Sulfate (FeroSul 325 mg oral tablet) 1 tab(s) Oral 3 times a day. Next Dose: Gabapentin (gabapentin 300 mg oral capsule) 1 capsule Oral twice a day. Next Dose: Gabapentin (gabapentin 300 mg oral capsule) 1 capsule Oral twice a day for 7 Days. Refills: 0. Next Dose: Hydromorphone (HYDROmorphone 2 mg oral tablet) 1 tab(s) Oral every 4 hours as needed as needed for pain for 3 Days. Refills: 0. Next Dose: Lisinopril (lisinopril 20 mg oral tablet) 1 tab(s) Oral Daily. Next Dose: Magnesium Oxide (magnesium oxide 400 mg (240 mg elemental magnesium) oral tablet) 1 tab(s) Oral Daily. Next Dose: Omeprazole (omeprazole 40 mg oral enteric coated capsule) 1 capsule Oral Daily. Refills: 1. Next Dose: Polyethylene Glycol 3350 (MiraLax Powder) 17 gram Oral Daily as needed Constipation. Next Dose: Senna (senna 187 mg oral tablet) 1 tab(s) Oral Daily at Bedtime as needed as needed for constipation. Next Dose: Tizanidine (tiZANidine 2 mg oral tablet) 1 tab(s) Oral every 8 hours as needed as needed for musclespasm for 7 Days. Refills: 0. Next Dose: Trazodone (traZODone 150 mg oral tablet) 1 tab(s) Oral Daily at Bedtime for 7 Days. Refills: 0. Next Dose: Trazodone (traZODone 50 mg oral tablet) 3 tab(s) Oral Daily at Bedtime as needed Insomnia. Next Dose: Allergy Info:?? penicillin; ibuprofen Medications Given This Visit Future Orders ?No future orders Vital Signs Height 144 cm Weight 81.8 kg BMI 39.45 kg/m2 Blood Pressure 121 mm Hg/79 mm Hg Temperature Pulse Rate 80 bpm Respiratory Rate 02 Sat Mode of Delivery / You can now view a summary of your hospital visit from the comfort of your home through a free online portal called [employer]. [employer] is a website that allows you to securely view your medical information including discharge summary, medications and follow-up visits. ??You can alsosend a secure electronic message to your doctor???s office to request appointments, renew medications or just ask a question. You can enroll at [email or web address] or register during your next office visit. Disclaimer:?? The information provided is of a general nature and is intended to be used in conjunction with the recommendations and advice of your health care practitioner. ??Every effort has been made to ensure that the information provided is accurate and complete at the time it is provided to you however, as your needs change, or, as new ??information becomes available, different or additional instructions may be required. If you have questions, please consult with your primary care provider or pharmacist, as appropriate. ??This information is not intended to serve as substitution for assessment and evaluation by a qualified health care provider. If you do not have a primary care provider, you may find a [facility] provider by calling [facility] at [phone]. For information about the plan of care including goals and instructions for your diagnosis, please see the patient education orders section of this document. Patient Education Materials?? The content of this educational material or handout may have been modified, supplemented, or adapted from its original content and format to support your individualized medical care. Patient Care team information Care Team Personnel Name: Blaine Jorgensen MD Position: [facility] Physician - Primary Care Member Role: PCP Address: Address: [address] [place] [address] Adult & Pediatric [address] Name: Oanh Leon RN Position: [facility] RN Member Role: Primary Care Nurse Name: Senia Orozco RN Position: S RN Member Role: Primary Care Nurse Name: Ro Chao RN Position: [facility] RN Member Role: Primary Care Nurse Care Team Related Persons Name: KEI ALMARAZ Address: [place] [address] Name: JAMES ALMARAZ Address: [address] [address]
--- OUTSIDE RECORDS SUMMARY | 2023-11-28 11:13 | XMS_ITS | Continuity of Care Document ---
Author Organization [facility] Address [address] [place] [address]- Care Team Providers Care Workforce Development Vice President Name Role Phone Joslyn WASHINGTON, Blaine Baker Primary Care Physician Encounter [facility] Date(s): 06/01/23 - 07/01/23 [facility] [address] [place] [address]- Allergies, Adverse Reactions, Alerts Substance Reaction Severity Status ibuprofen hives Active penicillin Active Immunizations Given and Recorded Vaccine Date Status Refusal Reason influenza virus vaccine, inactivated 05/11/22 Kirby rded influenza virus vaccine, inactivated 05/14/20 Kirby rded influenza virus vaccine, inactivated 06/17/16 Kirby rded [id number] 12y+ bivalent booster vax 05/11/22 Recorded SARS-CoV-2 [...] 0 Refills, Maintenance, 11/12/22 9:06:00 EDT, Tablet, [facility] 3, Partial fill upon patient request [...] Required Details, Route to Pharmacy Electronically,[facility], 144, cm, 02/21/23 11:05:0... Start [...] 9:02:00 EST, Inhaler, Route to Pharmacy Electronically, [id number], [facility], 152.2, cm, 11/11/20 12:47:00... [...] Team Personnel Name: Blaine Jorgensen MD Position: [facility] Physician - Primary Care Member Role: PCP Address: Address: [address] [place] [address] Adult & Pediatric [place], [place] [address] Name: Oanh Leon RN Position: [facility] RN Member Role: Primary Care Nurse Name: Senia Orozco RN Position: [facility] RN Member Role: Primary Care Nurse Name: Ro Chao RN Position: [facility] RN Member Role: Primary Care Nurse Care Team Related Persons Name: KEI ALMARAZ Address: [place] [address] Name: JAMES ALMARAZ Address: [address] [address]
--- OUTSIDE RECORDS SUMMARY | 2023-11-28 11:13 | XMS_ITS | Continuity of Care Document ---
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 Name Role Phone Blaine Jorgensen MD Primary Care Physician [phone] Encounter [facility] Date(s): 10/06/23 - 10/13/23 [facility] [address] [place], [place] [address] Attending Physician: Blaine Jorgensen MD Allergies, Adverse Reactions, Alerts Substance Reaction Severity Status ibuprofen hives Active penicillin Active Immunizations Given and Recorded Vaccine Date Status Refusal Reason influenza virus vaccine, inactivated 05/11/22 Kirby rded influenza virus vaccine, inactivated 05/14/20 Kirby rded influenza virus vaccine, inactivated 06/17/16 Kirby rded [id number] 12y+ bivalent booster vax 05/11/22 Recorded SARS-CoV-2 [...] 0 Refills, Maintenance, 11/12/22 9:06:00 EDT, Tablet, [facility] 3, Partial fill upon patient request [...] Required Details, Route to Pharmacy Electronically,[facility], 144, cm, 02/21/23 11:05:0... Start Date: 02/21/23 [...] DIZZINESS, # 90 tablet, 1 Refills, Maintenance, 10/06/23 9:12:00 EST, [facility], 144, cm, 10/06/23 8:41:00 EST, Height, 86.7, kg,11/10/22 17:31:00 EDT, Dry Weight Start Date: 10/06/23 Status: Ordered Metamucil 3.4 gm/5.2 gm oral powder for reconstitution = 1.7 Gm, By Mouth, Daily, dissolve in 8 oz of fluid, # 425 Gm, 1 Refills, Maintenance, 10/06/23 9:23:00 EST, REC Powder, [facility], Partial fill upon patient request if the prescription is for a schedule II opioid drug., 144, cm, 2... Start Date: 10/06/23 Status: Ordered omeprazole 40 mg oral enteric [...] 9:02:00 EST, Inhaler, Route to Pharmacy Electronically, [id number], [facility], 152.2, cm, 11/11/20 12:47:00... [...] oldest [Reference Range]: 1 Height 144 cm (10/06/23 8:41 AM) Weight 89 kg (10/06/23 8:41 AM) Oxygen Saturation [94-100 %] 98 % (10/06/23 8:41 AM) Pulse Rate [55-90 bpm] 98 bpm *H* (10/06/23 8:41 AM) Body Mass Index [18.5-24.99 kg/m2] 42.92 kg/m2 *>HHI* (10/06/23 8:41 AM) Blood Pressure [90-138/55-84 mm Hg] 96/5 6mm Hg (10/06/23 8:41 AM) Mode of Delivery (Oxygen) Room air (10/06/23 8:41 AM) Blood pressure sites Arm, left (10/06/23 8:41 AM) Weight Obtained Via Standing scale (10/06/23 8:41 AM) Social History Social History Type Response Smoking Status Never smoker entered on: 05/13/15 Sex Note * Adore Hennessy: PERFORM, SIGN, VERIFY Event Display: Patient Education/Instruction Authored Date: [id number] [facility] *[facility] Adult [facility] Clinical Summary Name MARI ALMARAZ Age 78 Years 1945 PCP Joslyn WASHINGTON, Blaine Baker PCP Visit Date 10/06/2023 08:32:00 Additional Instructions: Scheduled Appointments?? Future Appointments ?No Future Appointments Scheduled Follow-Up Instructions ?? Diagnosis Impaired glucose tolerance (oral); Hyperlipidemia, unspecified; Essential (primary) hypertension Medications: Please continue your medications until treatment is completed or stopped by your provider. Discuss any questions related to medications with your provider. Medications to Continue with No Changes [facility], [address] [place] [id number], [phone] Meclizine (meclizine 12.5 mg oral tablet) 1 tab(s) Oral 3 times a day as needed NEEDED FOR DIZZINESS. Refills: 1. Next Dose: Psyllium (Metamucil 3.4 gm/5.2 gm oral powder for reconstitution) 1.7 gram Oral Daily. dissolve in 8 oz of fluid. Refills: 1. Next Dose: These medications were not printed or sent to your pharmacy Acetaminophen (acetaminophen 325 mg oral tablet) 650 Milligram Oral every 6 hours. may take OTC. not to exceed 4000 mg/day. Next Dose: Albuterol (ProAir HFA 90 mcg/inh inhalation aerosol with adapter) 2 puff(s) Inhalation 4 times a day. Refills: 6. Next Dose: Atorvastatin (atorvastatin 10 mg oral tablet) 1 tab(s) Oral Daily at Bedtime for 30 Days. Refills: 11. Next Dose: BusPIRone (busPIRone 7.5 mg oral tablet) 1 tab(s) Oral twice a day. Next Dose: Clonazepam (clonazePAM 1 mg oral tablet) Next Dose: Cyclosporine Ophthalmic (Restasis 0.05% ophthalmic emulsion) 1 Drops Both eyes every 12 hours. Next Dose: Diclofenac Topical (diclofenac 1% topical gel) 1 lin Topically 4 times a day. Refills: 3. Next Dose: Docusate (docusate sodium 100 mg oral tablet) 100 Milligram Oral twice a day for 30 Days. Refills: 0. Next Dose: Duloxetine (duloxetine 60 mg oral enteric coated capsule) 1 capsule Oral Daily for 7 Days. Refills:0. Next Dose: erenumab (Aimovig SureClick Autoinjector-aooe 140 mg/mL subcutaneous solution) 140 Milligram Subcutaneous Injection Every 28 days. Next Dose: Gabapentin (gabapentin 300 mg oral capsule) 1 capsule Oral twice a day for 7 Days. Refills: 0. Next Dose: Lisinopril (lisinopril 20 mg oral tablet) TAKE 1 TABLET BY MOUTH DAILY.. Refills: 11. Next Dose: Magnesium Oxide (magnesium oxide 400 mg (240 mg elemental magnesium) oral tablet) 1 tab(s) Oral Daily. Next Dose: Miscellaneous Rx (VITAMIN B-2 TAB 100MG) one daily. Next Dose: Miscellaneous Rx (VITAMIN D3 1,000 UNIT SOFTGEL) one daily. Next Dose: Omeprazole (omeprazole 40 mg oral enteric coated capsule) 1 capsule Oral Daily. Refills: 1. Next Dose: Trazodone (traZODone 150 mg oral tablet) 1 tab(s) Oral Daily at Bedtime for 7 Days. Refills: 0. Next Dose: Allergy Info:?? penicillin; ibuprofen Medications Given This Visit Future Orders ?No future orders Vital Signs Height 144 cm Weight 89 kg BMI 42.92 kg/m2 Blood Pressure 96 mm Hg/56 mm Hg Temperature Pulse Rate 98 bpm Respiratory Rate 02 Sat Mode of Delivery 98 %/Room air You can now view a summary of your hospital visit from the comfort of your home through a free online portal called [employer]. [employer] is a website that allows you to securely view your medical information including discharge summary, medications and follow-up visits. ??You can alsosend a secure electronic message to your doctor???s office to request appointments, renew medications or just ask a question. You can enroll at [email or web address] or register during your next office visit. [...] primary care provider, you may find a [facility] provider by calling [facility] at [phone]. [facility], in keeping with [facility] guidance, no longer requires face masks for staff, patientsor visitors in most situations. Similar to time spent indoors at other locations, there is the chance that you were exposed to respiratory viruses during your time with us (such as flu or COVID-19).? If you develop symptoms concerning for a viral respiratory infection, please seek testing (and treatment if indicated) from your medical provider or home test kit. For information about the plan of care [...] Team Personnel Name: Blaine Jorgensen MD Position: [facility] Physician - Primary Care Member Role: PCP Address: Address: [address] [place] [address] Adult & Pediatric Medicine [address] Name: Oanh Leon RN Position: S RN Member Role: Primary Care Nurse Name: Senia Orozco RN Position: [facility] SN RN Member Role: Primary Care Nurse Name: Ro Chao RN Position: S RN Member Role: Primary Care Nurse Care Team Related Persons Name: KEI ALMARAZ Address: [place] [address] Name: JAMES ALMARAZ Address: [place] [address]
--- OUTSIDE RECORDS SUMMARY | 2023-11-28 11:13 | XMS_ITS | Continuity of Care Document ---
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 Name Role Phone Angela Calhoun MD Primary Care Physician Encounter [facility] Date(s): 12/10/22 - 01/09/23 [facility] [address] [place], [place] [address] Allergies, Adverse Reactions, Alerts Substance Reaction Severity Status ibuprofen hives Active penicillin Active Immunizations Given and Recorded Vaccine Date Status Refusal Reason influenza virus vaccine, inactivated 05/11/22 Kirby rded influenza virus vaccine, inactivated 05/14/20 Kirby rded influenza virus vaccine, inactivated 06/17/16 Kirby rded [id number] 12y+ bivalent booster vax 05/11/22 Recorded SARS-CoV-2 [...] Refills, Maintenance, 12/24/22 13:56:00 EDT, [facility], 144, cm, 11/13/22 6:44:00 EDT, Height, 86.7, [...] 0 Refills, Maintenance, 11/12/22 9:06:00 EDT, Tablet, [facility] 3, Partial fill upon patient [...] Refills, Maintenance, 11/11/22 9:24:00 EDT, EC Tablet, [facility] 3, Partial fill upon patient [...] 0 Refills, Maintenance, 11/28/22 12:25:00 EDT, Tablet, [id number], Partial fill upon patient request if [...] 9:02:00 EST, Inhaler, Route to Pharmacy Electronically, [id number], [facility], 152.2, cm, 11/11/20 12:47:00... [...] Team Personnel Name: Oanh Leon RN Position: [facility] RN Member Role: Primary Care Nurse Name: Senia Orozco RN Position: S RN Member Role: Primary Care Nurse Name: Angela Calhoun MD Position: [facility] Physician - Primary Care Member Role: PCP Address: Address: [address] [place] [address] Adult & Pediatric Medicine [place], [place] [address] Name: Ro Chao RN Position: [facility] RN Member Role: Primary Care Nurse Care Team Related Persons Name: KEI ALMARAZ Address: [place] [address] Name: JAMES ALMARAZ Address: [address] [address]
--- OUTSIDE RECORDS SUMMARY | 2023-11-28 11:14 | XMS_ITS | Continuity of Care Document ---
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 Name Role Phone Joslyn WASHINGTON, Blaine Baker Primary Care Physician [phone] Encounter [facility] Date(s): 04/26/23 - 05/03/23 [facility] [address] [place], [place] [address] Attending Physician: Blaine Jorgensen MD Referring Physician: Angela Calhoun MD Allergies, Adverse Reactions, Alerts Substance Reaction Severity Status ibuprofen hives Active penicillin Active Immunizations Given and Recorded Vaccine Date Status Refusal Reason influenza virus vaccine, inactivated 05/11/22 Kirby rded influenza virus vaccine, inactivated 05/14/20 Kirby rded influenza virus vaccine, inactivated 06/17/16 Kirby rded [id number] 12y+ bivalent booster vax 05/11/22 Recorded SARS-CoV-2 [...] 12/24/22 13:56:00 EDT, [facility], 144, cm, 11/13/22 6:44:00 EDT, Height, 86.7, [...] 0 Refills, Maintenance, 11/12/22 9:06:00 EDT, Tablet, [facility], Partial fill upon patient request [...] Route to Pharmacy Electronically,[facility], 144, cm, 02/21/23 11:05:0... Start Date: 02/21/23 [...] Refills, Maintenance, 04/26/23 9:06:00 EDT, Tablet, [facility], 144, cm, 04/26/23 8:51:00 EDT, Height, [...] 9:02:00 EST, Inhaler, Route to Pharmacy Electronically, [id number], [facility], 152.2, cm, 11/11/20 12:47:00... [...] oldest [Reference Range]: 1 Height 144 cm (04/26/23 8:51 AM) Weight 84.1 kg (04/26/23 8:51 AM) Oxygen Saturation [94-100 %] 97 % (04/26/23 8:51 AM) Pulse Rate [55-90 bpm] 65 bpm (04/26/23 8:51 AM) Body Mass Index [18.5-24.99 kg/m2] 40.56 kg/m2 *>HHI* (04/26/23 8:51 AM) Blood Pressure [90-138/55-84 mm Hg] 110/ 74mm Hg (04/26/23 8:51 AM) Mode of Delivery (Oxygen) Room air (04/26/23 8:51 AM) Blood pressure sites Arm, left (04/26/23 8:51 AM) Social History Social History Type Response Smoking Status Never smoker entered on: 05/13/15 Sex Note * Vanita Khoury: PERFORM, SIGN, VERIFY Event Display: Patient Education/Instruction Authored Date: [id number] *[facility] Clinical Summary Name MARI ALMARAZ Age 77 Years 1945 PCP Blaine Jorgensen MD PCP Visit Date 04/26/2023 08:40:00 Additional Instructions: Scheduled Appointments?? Future Appointments ?*[facility] ?[address]??[place],??[place],??[address] ?Phone:??--?Fax:??-- ?Appt. Date:??06/28/2023?11:40 AM ?Scheduled Provider:??Blaine Jorgensen MD Follow-Up Instructions ?? Diagnosis Medications: Please continue your medications until treatment is completed or stopped by your provider. Discuss any questions related to medications with your provider. Medications to Continue with No Changes [facility], [address] [place], [place] [phone], [phone] Meclizine (meclizine 12.5 mg oral tablet) 1 tab(s) Oral 3 times a day as needed for dizziness. Refills: 1. Next Dose: These medications were [...] DAILY AT BEDTIME. Refills: 5. Next Dose: BusPIRone (busPIRone 7.5 mg oral [...] orders Vital Signs Height 144 cm Weight 84.1 kg BMI 40.56 kg/m2 Blood Pressure 110 mm Hg/74 mm Hg Temperature Pulse Rate 65 bpm Respiratory Rate 02 Sat Mode of Delivery 97 %/Room air You can now view a summary of your hospital visit from the comfort of your home through a free online portal called [employer]. [employer] is a website that allows you to securely view your medical information including discharge summary, medications and follow-up visits. ??You can alsosend a secure electronic message to your doctor???s office to request appointments, renew medications or just ask a question. You can enroll at [email or web address] or register during your next office visit. [...] primary care provider, you may find a [facility] provider by calling [facility] [employer] at [phone]. [facility], in keeping with [facility] guidance, no longer requires face masks [...] Primary Care Member Role: PCP Address: Address: [address] [place] [address] Adult [place] [address]- [place] Name: Oanh Leon RN Position: S RN Member Role: Primary Care Nurse Name: Senia Orozco RN Position: S RN Member Role: Primary Care Nurse Name: Ro Chao RN Position: S RN Member Role: Primary Care Nurse Care Team Related Persons Name: KEI ALMARAZ Address: [place] [address] Name: JAMES ALMARAZ Address: [address] [address]
[2023-11-28 11:20] VITALS: BP 116/82; PULSE 92; O2SAT 98; BMI 37.9
--- NOTE | 2023-11-28 11:20 | MHC.OFFVIS ---
Vital Signs 11/28/23 11:20 Height 5 ft Weight 194 lb BMI 37.9 BP 116/82 Blood Pressure Location Rt brachial Position Sitting Pulse 92 Pulse Source Pulse Oximeter Pulse Oximetry (%) 98 Oxygen Delivery Method Room Air Intake Visit Reasons: 5 mo f/u - Migraines-LVM Intake Note: Patient presents for 5 month follow up migraines. Patient has been having horrible migraines radiating to neck. Allergies ibuprofen [From Motrin] Allergy (Verified 11/28/23 11:24) Rash Medication List - Last Reconciled 11/28/23 by ANNEL Taylor acetaminophen ER 0 mg PO atorvastatin 10 mg PO DAILY cholecalciferol (vitamin D3) 10 mcg PO DAILY 30 days clonazepam 1 mg PO BID PRN diclofenac sodium 1% grams topical BID duloxetine mg PO erenumab-aooe (Aimovig Autoinjector) 140 mg subcut ONCE 1 month gabapentin 300 mg PO BEDTIME 28 days hydromorphone 2 mg PO QID PRN lisinopril 20 mg PO DAILY magnesium oxide 400 mg PO BEDTIME 28 days meclizine 12.5 - 25 mg (1 - 2 x 12.5 mg) PO TID PRN 30 days omeprazole 40 mg PO DAILY riboflavin (vitamin B2) (Vitamin B-2) 200 mg (2 x 100 mg) PO BID 28 days rizatriptan 5 - 10 mg (0.5 - 1 x 10 mg) PO Q2H PRN 21 days trazodone ER 150 mg PO DAILY ubrogepant 50 - 100 mg orally at onset of headache, may repat in 2hrs (max 200mg/day); 30 days HPI Comments Details: 78-yr-old female presents for f/u visit. Pt denies any significant interval medical changes. Pt reports a new migarine in the last 3 months. This headcahe is much stronger and the right islam soreness. Pressure, throbbing, shooting pain starts in the right frontal region and runs back through the right islam, right occipital, and right neck. A/w nasal congestion before the headache, photophobia, caity blurry vision, watery eyes, red eyes, phonophobia, nausea, right islam allodynia and swelling and pulsating. Denies facial weakness. This prevents her from sleeping. Can last 12 hrs. Occurs 5-6 times per week. Tylenol has not helped. Has not tried her Rizatriptan- was not always effective. Does not have ubrelvy. Has not been having her typical migraine since resuming Aimovig. Her last Aimovig injection was in October 2023. [facility] Medical History (Updated 11/28/23 @ 12:24 by ANNEL Taylor) Migraine with aura, not intractable, without status migrainosus Insomnia High cholesterol Depression Hypertension Arthritis Surgical History History of knee replacement Family History Mother Diabetes Social History Household Members: None [facility] Alcohol intake: never Patient Tobacco Use Status: Never used Tobacco Physical Exam Vital Signs: Last Vital Signs Pulse 92 11/28/23 11:20 BP 116/82 11/28/23 11:20 Pulse Ox 98 11/28/23 11:20 Oxygen Delivery Method Room Air 11/28/23 11:20 BMI result Body Mass Index 37.9 Const General: cooperative and no acute distress Orientation/consciousness: patient oriented x3 Resp Effort & Inspection: normal respiratory effort and able to speak in complete sentences Neuro General: patient oriented x3 Cranial nerves: Yes CN's II-XII intact bilaterally Cognition (Neuro): normal cognition Psych Appearance: grossly normal Mental Status: mental status grossly normal Speech and movement: Normal speech and movement present Affect: normal affect Attitude: cooperative Assessment & Plan Assessment & Plan (1) Worsening headaches: Code(s): R51.9 - Headache, unspecified Category: Medical (2) Migraine with aura, not intractable, without status migrainosus: Code(s): G43.109 - Migraine with aura, not intractable, without status migrainosus Category: Medical (3) Sleep difficulties: Code(s): G47.9 - Sleep disorder, unspecified Category: Medical Plan For new-onset headache: Pt advised to undergo brain MRI w/o contrast to assess for secondary etiology in a pt of 78 yo. For vertigo: Continue Meclizine 12.5-25mg prn ? For migraine prevention: Continue Aimovig 140mg sc q month- as pt has good reduction in migraine attacks/burden. Continue Mag and B2. Previous migraine trials: Amitriptyline- not tolerated. Topiramate- not tolerated. Migraine tx contraindications: BBs d/t h/o asthma. ? For acute migraine treatment: Continue Tylenol prn. Stop Rizatripatn, may adjunct w/ Tylenol Resume Ubrelvy 100mg prn. Previous trails- Sumatriptan- ineffective. Fioricet- ineffective. ? For sleep: Continue Clonazepam prn for sleep. Future considerations- repeating sleep study. ? f/u in 6 months or sooner prn. Orders: Orders MR head/brain wo con 11/28/23 R51.9 - Headache, unspecified Medications: Changed From ubrogepant (0.5 - 1 x 100 mg) 50 - 100 mg orally at onset of headache, may repat in 2hrs (max 200mg/day); 30 days 16 tabs 6RF To ubrogepant 50 - 100 mg orally at onset of headache, may repat in 2hrs (max 200mg/day); 16 tabs 6RF 30 days From gabapentin 300 mg PO BEDTIME 28 days 28 caps 6RF To gabapentin 300 mg PO BID 56 caps 6RF 28 days Discontinued rizatriptan max 2 tabs per day or 4 tabs per week (May take with Tylenol) Discontinued Reason: Doctor's Order 5 - 10 mg (0.5 - 1 x 10 mg) PO Q2H 21 days PRN 12 tabs 3RF migraine headache Coding Level of Care Code Est Pt Level 4 (90518) Diagnoses Worsening headaches R51.9 Migraine with aura, not intractable, without status migrainosus G43.109 Sleep difficulties G47.9
== END 2023-11-28 12:30 | disposition home or self-care (01) ==
LOC: HO.HSMS 11:10
PROVIDERS: PCP Internal Medicine; Visit Provider Nurse Practitioner Family
DX: R51.9 Headache, unspecified (principal); G43.109 Migraine with aura, not intractable, without status migrainosus; G47.9 Sleep disorder, unspecified
CPT/HCPCS: 99214

== ENCOUNTER → 2023-11-28 11:10 | Outpatient (BNVA) | payer OTHER, SELFPAY | PROVIDERS: PCP Internal Medicine; Visit Provider Nurse Practitioner Family | DX: G43.109 Migraine with aura, not intractable, without status migrainosus (principal); R51.9 Headache, unspecified; G47.9 Sleep disorder, unspecified | CPT/HCPCS: 99212 ==

== ENCOUNTER 2024-02-15 09:14 | Outpatient (REF) | payer OTHER, SELFPAY ==
--- NOTE | ~2024-02-15 | MR_ITS ---
EXAMINATION: MR BRAIN WITHOUT CONTRAST CLINICAL INFORMATION: Headache COMPARISON: None available. TECHNIQUE: MRI of the brain was obtained using routine sequences without contrast. FINDINGS: Ventricles, sulci and cisterns are dilated. Multiple T2 hyperintense focal lesions are seen in bilateral frontal and parietal subcortical and deep white matters. No focal brainstem or cerebellar lesions with abnormal signal can be seen. Diffusion weighted images show no abnormal regional decrease in diffusion. Normal flow voids of major intracerebral blood vessels are seen in the visualized portion. The pituitary gland is markedly attenuated. Optic chiasm is not displaced. Cerebellar tonsils position is normal. MR/MR head/brain wo con IMPRESSION: 1. Age related cerebral atrophy and multifocal ischemic white matter lesions compatible with microangiopathy or demyelinating disease are seen. 2. No acute cerebral infarction is seen. 3. No evidence of space occupying mass lesion could be found. 4. No evidence of intracranial hemorrhage. 5. Empty sella syndrome is present.
== END 2024-02-15 09:15 | disposition home or self-care (01) ==
LOC: HO.MRI 09:14
PROVIDERS: Visit Provider Nurse Practitioner Family
DX: R51.9 Headache, unspecified (principal)
CPT/HCPCS: 70551

== ENCOUNTER 2024-11-28 11:11 | Outpatient (AMB) | payer OTHER, SELFPAY ==
--- NOTE | 2024-11-28 11:32 | A.OFFVIS_ITS ---
Vital Signs 11/28/24 11:35 Weight 213 lb BP 110/70 Pulse 114 H Pulse Source Pulse Oximeter Pulse Oximetry (%) 97 Oxygen Delivery Method Room Air Intake Visit Reasons: 6 month F/U Patient Monitor Required: No Allergies ibuprofen [From Motrin] Allergy (Verified 11/28/24 11:35) Rash Medication List - Last Reconciled 11/28/24 by ANNEL Taylor acetaminophen ER 0 mg PO atorvastatin 10 mg PO DAILY cholecalciferol (vitamin D3) 10 mcg PO DAILY 30 days clonazepam 1 mg PO BID PRN diclofenac sodium 1% grams topical BID duloxetine mg PO erenumab-aooe (Aimovig Autoinjector) 140 mg subcut ONCE 1 month gabapentin 300 mg PO BID 28 days lisinopril 20 mg PO DAILY magnesium oxide 400 mg PO BEDTIME 28 days meclizine 12.5 - 25 mg (1 - 2 x 12.5 mg) PO TID PRN 30 days omeprazole 40 mg PO DAILY riboflavin (vitamin B2) (Vitamin B-2) 200 mg (2 x 100 mg) PO BID 28 days trazodone ER 150 mg PO DAILY ubrogepant 50 - 100 mg orally at onset of headache, may repat in 2hrs (max 200mg/day); 30 days HPI Comments Details: 78-yr-old female presents for f/u visit. Pt denies any significant interval medical changes. She states that she is having generalized joint pain. States her PCP was referring her to Rheumatology, however she thinks she missed the appointment as she did not know where or when the appointment was. Interval brain are MRI showed age-related changes, however no findings to explain patient's worsening of migraine attacks that she had reported at the last visit. Likely, the increase in migraine attacks was due to the labs in her Aimovig therapy at that time. Patient reports that her migraines attacks have improved since the last visit. She is now having about two migraine days per week. Migraine characteristics include: Pressure, throbbing, shooting pain starts in the right frontal region and runs back through the right muslim, right occipital, and right neck. A/w nasal congestion before the headache, photophobia, caity blurry vision, watery eyes, red eyes, phonophobia, nausea, right muslim allodynia and swelling and pulsating. Patient has resumed Aimovig, which she feels is very effective. She states she is tolerating this well without adverse effect. She has not receive the Ubrelvy yet, however it has been approved by her insurance. She does take Tylenol, however it is not very effective. She reports she has occasional dizziness which is responsive to the as needed meclizine. She states she is sleeping well with clonazepam. 02/15/2024, MR/MR head/brain wo con 1. Age related cerebral atrophy and multifocal ischemic white matter lesions compatible with microangiopathy or demyelinating disease are seen. 2. No acute cerebral infarction is seen. 3. No evidence of space occupying mass lesion could be found. 4. No evidence of intracranial hemorrhage. 5. Empty sella syndrome is present. [facility] Medical History (Updated 11/28/23 @ 12:24 by ANNEL Taylor) Migraine with aura, not intractable, without status migrainosus Insomnia High cholesterol Depression Hypertension Arthritis Surgical History History of knee replacement Family History Mother Diabetes Social History Household Members: None Housing: Condominium Alcohol intake: never Patient Tobacco Use Status: Never used Tobacco Physical Exam Vital Signs: Last Vital Signs Pulse 114 H 11/28/24 11:35 BP 110/70 11/28/24 11:35 Pulse Ox 97 11/28/24 11:35 Oxygen Delivery Method Room Air 11/28/24 11:35 Const General: cooperative and no acute distress Orientation/consciousness: patient oriented x3 Resp Effort & Inspection: normal respiratory effort and able to speak in complete sentences Neuro Other: Steady gait with cane General: patient oriented x3 Cranial nerves: Yes CN's II-XII intact bilaterally Cognition (Neuro): normal cognition Psych Appearance: grossly normal Mental Status: mental status grossly normal Speech and movement: Normal speech and movement present Affect: normal affect Attitude: cooperative Assessment & Plan Assessment & Plan (1) Migraine with aura, not intractable, without status migrainosus: Code(s): G43.109 - Migraine with aura, not intractable, without status migrainosus Category: Medical (2) Sleep difficulties: Code(s): G47.9 - Sleep disorder, unspecified Category: Medical (3) Worsening headaches: Code(s): R51.9 - Headache, unspecified Category: Medical Plan Reviewed interval brain MRI results, results of which were consistent with age- related changes but did not show any findings to explain headache symptoms. Patient advised to follow-up with PCP regarding previous referral to Rheumatology. For vertigo: Continue Meclizine 12.5-25mg prn ? For episodic migraine prevention: Continue Aimovig 140mg sc q month- as pt has good reduction in migraine attacks/burden- specifically patient has had greater than 50% reduction in monthly migraine days with starting Aimovig. Continue riboflavin 200 mg twice a day. Continue magnesium oxide 400 mg daily at bedtime. Previous migraine trials: Amitriptyline- not tolerated. Topiramate- not tolerated. Migraine tx contraindications: BBs d/t h/o asthma. ? For acute migraine treatment: Ubrelvy has previously been very effective for patient. Resume Ubrogepant (Ubrelvy) 100mg tab, 1/2 - 1 tab (50-100mg) at onset of headache, may repeat in 2 hours. Max of 2 tabs (200mg) per 24 hours. May adjunct with OTC Tylenol 650-1000mg q 4-6 hours,.Potential adverse effects, include but are not limited to fatigue, nausea, dry mouth, constipation. Patient advised that her Ubrelvy has a prior authorization approval through December of 2024. Order resent to her pharmacy today. When she received Ubrelvy, advised to carry this with her at all times. Advised that she should take it at the very earliest signs of a migraine attack. Previous trails- Sumatriptan- ineffective. Rizatriptan- ineffective Fioricet- ineffective. ? For sleep: Continue Clonazepam prn for sleep. Future considerations- repeating sleep study. ? f/u in 6 months or sooner prn. Medications: Refilled 2 ubrogepant (0.5 - 1 x 100 mg) 50 - 100 mg orally at onset of headache, may repat in 2hrs (max 200mg/day); 30 days 16 tabs 6RF erenumab-aooe (Aimovig Autoinjector) 140 mg(1ml) injection to subcutaneous once a month 140 mg subcut ONCE 1 month 30 mL 11RF Coding Level of Care Code Est Pt Level 4 (05197) Diagnoses Migraine with aura, not intractable, without status migrainosus G43.109 Sleep difficulties G47.9 Worsening headaches R51.9
[2024-11-28 11:35] VITALS: BP 110/70; PULSE 114; O2SAT 97
--- OUTSIDE RECORDS SUMMARY | 2024-11-28 13:31 | XMS_ITS | Data Portability ---
Author Organization [employer] Address [address] [place] [address] Care Team Providers Care Chairman And Chief Executive Officer Name Role Phone HIM CCA OTHER LOUISE CREWS Primary Care Provider Assessment Encounter Date Assessment Date Assessment LastModified by Organization Details LastModified Time 10/16/2024 10/16/2024 Impression: 79yo/f referred for evaluation for several days of body aches, mild headache, generalized weakness and fatigue but also requesting refill of prescribed clonazepam. Patient with hx of anxiety/depress ion, on benzos chronically. States ran out of her prescription medication and does not have refills until next week. For medic on scene patient is awake, alert, in no distress. A/ox3, GCS 15. Described some mild generalized headache, but is well appearing, neuro intact. Neck soft and supple, CV RRR, lungs CTAB, abdomen soft and nontender, no LE edema. Her vitals are very re-assuring, no significant tachycardia or hypertension. She is tolerating PO normally, ambulating at her baseline. No associated chest pain, back pain, dyspnea, palpitations, abdominal pain, syncope. They deny other ROS. Plan: Patient has a re-assuring history and exam, including vitals and a negative covid and flu. No dangerous signs or symptoms on medic evaluation today. Patient will need to obtain refill for her chronic controlled substances through her primary prescribers, I advised they call those prescribers today, I will flag CRC nurses to see if they are able to help connect to PCP office. Patient is stable for continued observation of her symptoms at home, followup with her PMD in 24-48 hours for recheck, and strict instructions to reach out immediately with any acute worsening or change in symptoms. I have a lower clinical suspicion at this time for an occult emergency medical condition such as ACS, PE, aortic dissection, AAA, ICH, CVA, severe benzo withdrawal. Discharged from visit with mandatory timed followup instructions and sdtrict return instructions reviewed. Primary care, consider 24 hour recheck Disposition: We discussed the diagnostic uncertainty of home visits and the risk associated with this. In this case, the patient and I felt this to be an acceptable and reasonable amount of risk given the benefit of avoiding an ED visit. We discussed the need to seek care urgently/emerge ntly in the setting of any new or worsening serious symptoms [email or web address] Not available 10/16/2024 12:45:28 Plan of Treatment Reminders Order Date Submit Date Provider Last Modified By Organization Details Last Modified Time Details Appointments None recorded. Lab rapid SARS CoV 2 Ag, QL IA, respiratory specimen [address], [address] [place] [address] 13:04:24 rapid flu (A+B) [address] [place] [address], [address] [place] [address] 13:04:45 Referral None recorded. Procedures None recorded. Surgeries None recorded. Imaging None recorded. Medication Orders None recorded. Patient TargetsNo targets recorded. Patient InstructionsNo instructions recorded. Reason for Referral None Reported. Results Created Date Observation Date Name Description Value Unit Range Abnormal Flag Note LastModifiedBy Organization Detail LastModifiedTime 10/17/1910/16/2024 rapid flu (A+B) Flu negati ve Not Available [address], [address] [place] [address] 10/16/2024 12:24:35 10/17/1910/16/2024 rapid SARS CoV 2 Ag, QL IA, respi rator y speci men rapid SARS CoV 2 Ag, QL IA, respiratory specimen negati ve Not Available [facility] ed [address] [place] [address], [address] [place] [address] 10/16/2024 12:24:34 Result Notes None recorded. Medical Equipment None Reported. Allergies Allergen ID Allergen Name Allergen Category Reaction Reaction Severity Criticality Documentation Date Start Date Code Code System Note Provider Name and Address Organization Details Recorded Time 67706 Motrin medicatio n Not available Not available Not available 10/16/2024 8 RxNorm Not Available [facility] - production 11:35:18 10001 morphine medicatio n Not available Not available Not available 10/16/2024 7052 RxNorm Not Available [facility] - production 5 11:35:18 Medications Name Sig Start Date Stop Date Status Note LastModified by Organization Details LastModified Time latanoprost 0.005 % eye drops active Not Available Not Available Not Available Vitamin B-2 100 mg tablet active Not Available Not Availabl e Not Available atorvastatin 10 mg tablet active Not Available Not Available Not Available lisinopril 20 mg tablet active Not Available Not Available No t Available clonazepam 0.5 mg tablet TAKE 1 TABLET BY MOUTH ONCE A DAY DIRECTED TOME NATHANIEL TABLETA POR BOCA 6PM active Not Available Not Available No t Available meclizine 12.5 mg tablet active Not Available Not Available No t Available omeprazole 40 mg capsule,delaye d release active Not Available Not Available No t Available Vitamin D3 10 mcg (400 unit) tablet active Not Available Not Available Not Available magnesium oxide 400 mg (241.3 mg magnesium) tablet active Not Available Not Available Not Available trazodone 150 mg tablet TAKE 2 TABLET BY MOUTH AT BEDTIME DIRECTED FOR SLEEP AND MOOD active Not Available Not Available No t Available gabapentin 300 mg capsule active Not Available Not Available N ot Available buspirone 7.5 mg tablet TAKE 1 TABLET BY MOUTH TWICE A DAY NEEDED 20 MIN BEFORE MEALS FOR ANXIETY active Not Available Not Available No t Available Ventolin HFA 90 mcg/actuation aerosol inhaler active Not Available Not Available Not Available cyclobenzaprin e 5 mg tablet active Not Available Not Availabl e Not Available Restasis 0.05 % eye drops in a dropperette active Not Available Not Availabl e Not Available duloxetine 60 mg capsule,delaye d release TAKE 1 CAPSULE BY MOUTH TWICE A DAY FOR MOOD/ANXI ETY AND PAIN active Not Available Not Available No t Available 8 Hour Pain Reliever 650 mg tablet,extende d release active Not Available Not Available No t Available diclofenac 1 % topical gel active Not Available Not Available Not Available Aimovig Autoinjector 140 mg/mL subcutaneous auto-injector active Not Available Not Availabl e Not Available Ubrelvy 100 mg tablet active Not Available Not Available Not Available Genabio COVID-19 Rapid At-Home kit DIRECTED active Not Available Not Available No t Available Vitals Date Recorded Heart rate Respiratory rate Oxygen saturation Oxygen saturation in Arterial blood by Pulse oximetry Body temperature Systolic blood pressure Diastolic blood pressure Provider Name and Address Organization Details Last Updated DateTime 5 86 /min 18 /min 97 % 97 % 98.4 [degF] 136 mm[Hg] 68 mm[Hg] Not Available [facility] 12:21:19 Social History None recorded. Functional Status None recorded. Mental Status None recorded. Family History Nothing Reported. Medical History No medical history recorded. Gynecological HistoryNo gynecological history recorded. Obstetrics History GPAL:G 0 P 0 0 0 0 Past Encounters Encounter ID Performer Location Encounter Start Date Encounter Closed Date Diagnosis/Indication Diagnosis SNOMED-CT Code Diagnosis ICD10 Code Diagnosis Note [id number] Nav Lauren MD [facility] [address] [place] [phone] 10/16/2024 12:21:12 10/17/2024 16:21:03 Generalized aches and pains [id number] R52 Health Concerns Section Related Observation LastModified by Organization Detai ls LastModified Time None Recorded Concern Status LastModified by Organization Details LastModified Time None Recorded Advance Directives Directive None Recorded Payers Encounter Date Sequence Insurance Name Policy Number Policy Barrett Covered Member ID Barrett Member ID Guarantor Name 10/16/2024 1 [facility] - DOS ON OR AFTER 2022 - DUAL ELIGIBLE - FPC OPTIONS AND ONE CARE (MEDICARE REPLACEMENT/ADV ANTAGE - HMO) Natasha Cooley [id number] Natasha Cooley Notes Date Note Type Note Provider Name and Address Organization Details Recorded Time 10/16/2024 text/html CRC Nurse Triage Notes (Ro Cueva): Reason For Request: not feeling well Chief Complaints: Headache, Weakness PMH: Depression, Anxiety Disorder PMH Reviewed at 10/16/2024:34 Allergies Reviewed at 10/16/2024:34 Comments: CHIEF BUILDING INSPECTOR calling to request visit for patient with symptoms of body aches, headache, weakness x1 week. Does not have refill of Clonazapam until the 18th. Requesting dispensing 2-3 pills until the 18th. Patient is a poor historian. No apparent distress. Education provided on the response time and the member was advised to monitor reported s/s and seek emergency treatment if needed. 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 Rapid COVID antigen (12:17:50) COVID: - Attachments uploaded as part of this test result can be found under Documents section. ................... ................... ................... ................... ................... ................... ................... ........ 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 Arrival on scene, patient was found inside home with CHIEF BUILDING INSPECTOR seated in chair alert and oriented x4, patent airway, breathing non labored speaking in complete sentences, skin WPD in no obvious distress. +/= Chest rise. -SOB, -CP, -NVD, -Trauma, -Fever. GCS 15. Language barrier present as both patient and CHIEF BUILDING INSPECTOR speak primarily German. Patient reports that she has been experiencing body aches, headache, and nausea for approximately 5 days. Patient reports that she ran out of her Clonazepam about 3 days ago and is unable to get a refill until 10/23. Patient believes that she is having withdrawals from not having her medication and scheduled visit in hopes of [facility] dispensing medications until she could get a refill. Patient also reports no recent trauma or fevers and reports normal food/fluid intake, medication complaint aside from Clonazepam. Patient vital signs obtained as noted. COVID/FLU POC tests performed and negative for all. [facility] consulted and advised patient that he cannot refill a controlled substance and that she has to contact the prescriber for the Clonazepam. Patient also notified that [facility] does not carry controlled substances either. Red flags discussed with patient and CHIEF BUILDING INSPECTOR, advised to call back or call 911 if condition worsens. [facility]12 clear. [facility] Lab Orders: rapid SARS CoV 2 Ag, QL IA, respiratory specimen: Performed rapid flu (A+B): Performed ................... ................... ................... ................... ................... ................... ................... ........ [facility] Consulted: Nav Lauren ................... ................... ................... ................... ................... ................... ................... ........ Disposition: Fulfilled Nav Lauren MD [address] [facility],[address], [place], [address], [employer] 10/16/2024 12:45:46 OBGyn Episode No OBEpisode recorded.
--- OUTSIDE RECORDS SUMMARY | 2024-11-28 13:31 | XMS_ITS | Clinical Summary ---
Author Organization [facility] Address [address] [place] [address] Phone Care Team Providers Care Recreational Therapist Name Role Phone Celestine Gonzalez MD Primary Care Provider Allergies Active Allergy Reactions Criticality Noted Date Comments Aspirin Nausea And Vomiting 02/26/2013 Duloxetine Itching 11/17/2016 Ibuprofen 06/13/2019 Other Reaction(s): Other (See Comments), Rash/Dermatitis Morphine 08/03/2020 Penicillins 06/13/2019 Other Reaction(s): Hives/Urticaria, Other (See Comments) Encounters Date Type Department Care Team Description 11/12/2024 10:33 AM EDT - 11/12/2024 4:28 PM EDT Emergency [facility] Emergency [address] [place] [address] Discharge Disposition: Left Against Medical Advice from Last 3 Months Surgical History Surgery Date Site/Laterality Comments UPPER GASTROINTESTINAL ENDOSCOPY 01/2000 PROCEDURE: CT UPPER GI ENDOSCOPY PERFORMED; COMMENT: erosion of antrum and hiatal hernia UPPER GASTROINTESTINAL ENDOSCOPY 08/30/2014 PROCEDURE: CT UPPER GI ENDOSCOPY PERFORMED; COMMENT: moderate erosive antral gastritis w/ shallow linear ulcers COLONOSCOPY 01/17/2006 PROCEDURE: HISTORICAL COLONOSCOPY; COMMENT: 6 mm ascending colon polyp resected but not recovered COLONOSCOPY 01/08/2011 PROCEDURE: HISTORICAL COLONOSCOPY; COMMENT: diverticulosis COLONOSCOPY 10/22/2014 PROCEDURE: HISTORICAL COLONOSCOPY; COMMENT: increased diverticulosis CHOLECYSTECTOMY 01/20/2008 PROCEDURE: HISTORICAL CHOLECYSTECTOMY; COMMENT: lap TOTAL KNEE ARTHROPLASTY 2003 Right PROCEDURE: HISTORICAL TOTAL KNEE REPLACE OTHER SURGICAL HISTORY PROCEDURE: HISTORY OTHER; COMMENT: vein ligation TONSILLECTOMY PROCEDURE: HISTORICAL TONSILLECTOMY TUBAL LIGATION PROCEDURE: HISTORICAL TUBAL LIGATION Medical History Medical History Date Comments Anxiety 06/13/2019 DX:Anxiety Depression 06/13/2019 DX:Depression; C OMMENT: Psychiatric admission [place] 2013, [facility] DJD (degenerative joint disease) 06/13/2019 DX:DJD (degenerative joint disease) Erosive esophagitis 06/13/2019 DX:Erosive e sophagitis; COMMENT: On UGI endoscopy 2014 Esophageal stricture 06/13/2019 DX:Esophage al stricture; COMMENT: EGD 05/20/06 tortuous esophagus, > 18 mm stricture LES @ 35 cm, ineffective dilitation at 20 mm Balloon Fibromyalgia 06/13/2019 DX:Fibromyalgia GERD (gastroesophageal reflux disease) 06/13/2019 DX:GERD (gastroesophageal reflux disease) Hiatal hernia 06/13/2019 DX:Hiatal hernia History of total right knee replacement DX:History of total right knee replacement Hypertension 06/13/2019 DX:Hypertension Lumbar disc herniation 06/13/2019 DX:Lumbar disc herniation Migraines 06/13/2019 DX:Migraines; CO MMENT: Neuro at [facility] Morbid obesity with BMI of 4 0.0-44.9, adult ([facility] V24, [facility] V28) 06/13/2019 DX:Morbid obesity wit h BMI of 40.0-44.9, adult ([facility]) Osteoporosis 06/13/2019 DX:Osteoporosis Hyperlipidemia 06/13/2019 DX:Hyperlipidemi a Dysphagia 06/13/2019 DX:Dysphagia Anemia DX:Anemia Asthma DX:Asthma Osteoporosis DX:Osteoporosis Family History Medical History Relation Name Comments No Known Problems Brother 1 No Known Problems Brother 2 Coronary artery disease Father age 100 Diabetes Mother Osteoporosis Mother age 98 Stroke Sister 1 70 Diabetes Sister 2 Diabetes Sister 3 Relation Name Status Comments Brother 1 Brother 2 Father Mother Sister 1 Sister 2 Sister 3 Social History Tobacco Use Types Packs/Day Years Used Date Smoking Tobacco: Never Assessed Alcohol Use Standard Drinks/Week Comments Never 0 (1 standard drink = 0.6 oz pur e alcohol) Comments No Sex and Gender Information Value Date Recorded Sex Assigned at Not on file Legal Sex Female 8:17 PM EST Gender Identity Not on file Sexual Orientation Not on file Obstetrics History Last Filed Vital Signs Vital Sign Reading Time Taken Comments Blood Pressure 142/90 11/12/2024 11:03 AM EDT Pulse 105 11/12/2024 11:03 AM EDT Temperature 36.6 ??C (97.9 ??F) 11/12/2024 11:03 AM E DT Respiratory Rate 20 11/12/2024 11:03 AM EDT Oxygen Saturation 96% 11/12/2024 11:03 AM EDT Inhaled Oxygen Concentration - - Weight 90.7 kg (200 lb) 11/12/2024 11:03 AM EDT Height 121.9 cm (4') 11/12/2024 11:03 AM EDT Body Mass Index 61.03 11/12/2024 11:03 AM EDT Plan of Treatment Health Maintenance Due Date Last Done Comments Zoster Vaccines (1 of 2) 1995 Pneumococcal Vaccine: 50+ Years (2 of 2 - PPSV23) 01/12/2017 11/17/2016 RSV Immunization Adult Patients (1 - 1-dose 75+ series) 2020 Cholesterol Screening (Lipid Panel) 07/10/2022 Colorectal Cancer Screening: Colonoscopy 07/10/2022 Depression Screening 07/10/2022 Falls Risk Assessment 07/10/2022 Hepatitis C Screening 07/10/2022 Medicare Annual Wellness Visit 07/10/2022 Osteoporosis Screening (Bone Density Screening) 07/10/2022 Social Influencers of Health Screening 07/10/2022 Hypertension/CHF/CAD Annual BMP Blood Test 07/22/2022 COVID-19 Vaccine ( season) 2024 05/11/2022, 11/06/2020 DTaP,Tdap,and Td Vaccines (2 - Td or Tdap) 11/17/2026 11/17/2016 Influenza Vaccine Completed 05/25/2024, , 05/14/2020, Additional history exists HIB Vaccines Aged Out No longer eligi ble based on patient's age to complete this topic HPV Vaccines Aged Out No longer eligi ble based on patient's age to complete this topic Hepatitis A Vaccines Aged Out No long er eligible based on patient's age to complete this topic Hepatitis B Vaccines Aged Out No long er eligible based on patient's age to complete this topic IPV Vaccines Aged Out No longer eligi ble based on patient's age to complete this topic MMR Vaccines Aged Out No longer eligi ble based on patient's age to complete this topic Meningococcal ACWY Vaccine Aged Out N o longer eligible based on patient's age to complete this topic Meningococcal B Vaccine Aged Out No l onger eligible based on patient's age to complete this topic RSV Immunization Patients Under 20 months Aged Out No longer eligible based on patient's age to complete this topic Varicella Vaccines Aged Out No longer eligible based on patient's age to complete this topic Procedures Procedure Name Priority Date/Time Associated Diagnosis Comments JENNINGS URINE CULTURE TUBE STAT 11/12/2024 10:52 AM EDT URINALYSIS WITH REFLEX MICROSCOPIC AND CULTURE STAT 11/12/2024 10:52 AM EDT URINALYSIS WITH REFLEX MICROSCOPIC AND CULTURE STAT 11/12/2024 10:52 AM EDT CULTURE URINE STAT 11/12/2024 10:52 AM EDT from Last 3 Months Results * (ABNORMAL) Urinalysis with reflex microscopic and culture (11/12/2024 10:52 AM EDT) Specific [place] Urine 1.016 1.003 - 1.030 LAB URINALYSIS - AUTOMATED METHOD 11/12/2024 11:20 AM [facility] pH, Urine 7.0 5.0 - 8.0 pH LAB URINALYSIS - AUTOMATED METHOD 11/12/2024 11:20 AM [facility] Leukocytes, Urine Moderate(A) Negative LAB URINALYSIS - AUTOMATED METHOD 11/12/2024 11:20 AM [facility] Nitrite, Urine Negative Negative LAB URINALYSIS - AUTOMATED METHOD 11/12/2024 11:20 AM [facility] Protein, Urine Negative <=Trace mg/dL LAB URINALYSIS - AUTOMATED METHOD 11/12/2024 11:20 AM [facility] Glucose, Urine Negative Negative mg/dL LAB URINALYSIS - AUTOMATED METHOD 11/12/2024 11:20 AM [facility] Ketones, Urine Negative Negative mg/dL LAB URINALYSIS - AUTOMATED METHOD 11/12/2024 11:20 AM [facility] Urobilinogen , Urine 0.2 0.2 - 1.0 mg/dL LAB URINALYSIS - AUTOMATED METHOD 11/12/2024 11:20 AM [facility] Bilirubin, Urine Negative Negative LAB URINALYSIS - AUTOMATED METHOD 11/12/2024 11:20 AM [facility] Blood, Urine Negative Negative LAB URINALYSIS - AUTOMATED METHOD 11/12/2024 11:20 AM [facility] RBC, Urine 3.8 0 - 4 /HPF LAB URINALYSIS - AUTOMATED METHOD 11/12/2024 11:20 AM [facility] WBC, Urine 101.2(H) 0 - 4 /HPF LAB URINALYSIS - AUTOMATED METHOD 11/12/2024 11:20 AM [facility] Squamous Epithelial, Urine 8 0 - 60 /LPF LAB URINALYSIS - AUTOMATED METHOD 11/12/2024 11:20 AM [facility] Bacteria, Urine Many(A) Negative /HPF LAB URINALYSIS - AUTOMATED METHOD 11/12/2024 11:20 AM [facility] Hyaline Casts, Urine 1.6 0 - 3 /LPF LAB URINALYSIS - AUTOMATED METHOD 11/12/2024 11:20 AM [facility] Urine Urine specimen obtained by clean catch procedure / Unknown Non-blood Collection / Unknown 11/12/2024 10:52 AM EDT 11/12/2024 11:06 AM EDT us Troy Heredia DO LAB URINE ORDERABLES Final Result [facility] [address] [place] [address], * Jennings urine culture tube (11/12/2024 10:52 AM EDT) Extra Tube Hold for add-ons. 11/12/2024 1:01 PM EDT [facility] Comment:Auto resulted. Urine Urine specimen obtained by clean catch procedure / Unknown Non-blood Collection / Unknown 11/12/2024 10:52 AM EDT 11/12/2024 11:06 AM EDT Troy Heredia DO LAB URINE ORDERABLES Final Result [facility] [address] [place] [address], * (ABNORMAL) Culture urine (11/12/2024 10:52 AM EDT) Pathologist [facility] Culture, Urine >100,000 CFU/mL Proteus mirabilis(A ) MOLLY 11/14/2024 10:26 AM EDT [facility] Comment: Edited result: Previously reported as Proteus species on 11/13/2024 at 0814 EDT. Urine Urine specimen obtained by clean catch procedure / Unknown Non-blood Collection / Unknown 11/12/2024 10:52 AM EDT 11/12/2024 11:20 AM EDT Narrative [facility] - 11/14/2024 10:26 AM EDT Additional colony types present in insignificant amounts. Organism Antibiotic Method Susceptibility Proteus mirabilis Amoxicillin/Clavulanate MOLLY 4 ug/ml: Susceptible Proteus mirabilis Ampicillin/Sulbactam MOLLY <=2 ug/ml: Susceptible Proteus mirabilis Piperacillin/Tazobactam MOLLY <=4 ug/ml: Susceptible Proteus mirabilis Cefazolin (Urine) MOLLY 4 ug/ml: Susceptible Proteus mirabilis Cefoxitin MOLLY 8 ug/ml: Susceptible Proteus mirabilis Ceftazidime MOLLY <=0.5 ug/ml: Susceptible Proteus mirabilis Ceftriaxone MOLLY <=0.25 ug/ml: Susceptible Proteus mirabilis Cefepime MOLLY <=0.12 ug/ml: Susceptible Proteus mirabilis Meropenem MOLLY 1 ug/ml: Susceptible Proteus mirabilis Amikacin MOLLY 4 ug/ml: Susceptible Proteus mirabilis Gentamicin MOLLY <=1 ug/ml: Susceptible Proteus mirabilis Ciprofloxacin MOLLY <=0.06 ug/ml: Susceptible Proteus mirabilis Levofloxacin MOLLY <=0.12 ug/ml: Susceptible Proteus mirabilis Nitrofurantoin MOLLY 128 ug/ml: Resistant Proteus mirabilis Trimethoprim/Sulfamethoxazole MOLLY <=20 ug/ml: Susceptible us Troy Heredia DO LAB MICROBIOLOGY - GENERAL ORDERABLES Final Result [facility] [address] [place] [address], from Last 3 Months Insurance [employer] MEDICARE Member Subscriber Plan / Payer (Ef fective 2024-Present) Name:Natasha Cooley Relation to Subscriber:Self Name:Natasha Cooley Payer ID:[id number] Group ID:Not on file Type:Not on file Address: [place] [address] [address] [id number] Care Teams Recreational Therapist Relationship Specialty Start Date End Date Celestine Gonzalez MD [address] [place] [address] Dr Shakir [place] PCP - General 03/27/13
--- OUTSIDE RECORDS SUMMARY | 2024-11-28 13:32 | XMS_ITS | Referral Summary ---
Author Organization [facility] Address [address] [place] [address] Care Team Providers Care Plant Pathology Teacher Name Role Phone Angela Calhoun MD Primary Care Provider [phone] Allergies Active Allergy Reactions Criticality Noted Date Comments Aspirin Nausea And Vomiting 02/26/2013 Duloxetine Itching 11/17/2016 Ibuprofen Hives,Rash Low 02/26/2013 Morphine Unknown 08/03/2020 Penicillins Rash 10/06/2017 Medications docusate sodium (Colace) 100 mg capsule Take 100 mg by mouth. 3 Active atorvastatin (LIPITOR) 10 mg tablet Take 10 mg by mouth. 2 Active baclofen (LIORESAL) 10 mg tablet Take 10 mg by mouth. Active busPIRone (BUSPAR) 7.5 mg tablet 2 Active Vitamin D3 25 mcg (1,000 unit) capsule 3 Active acetaminophen (TYLENOL) 650 mg 8 hr tablet 3 Active ascorbic acid, vitamin C, (VITAMIN C) 250 mg tablet Take 250 mg by mouth. Active clonazePAM (KlonoPIN) 1 mg tablet Take 1 mg by mouth. 3 Active Restasis 0.05 % ophthalmic emulsion 2 Active diclofenac (VOLTAREN) 1% gel Apply 1 application. topically to the affected area. [address] (CYMBALTA) 60 mg capsule 2 Active gabapentin (NEURONTIN) 300 mg capsule 3 Active HYDROmorphone (DILAUDID) 2 mg tablet SMARTSI Tablet(s) By Mouth Every 4 Hours PRN 3 Active latanoprost (XALATAN) 0.005% ophthalmic solution SMARTSIG:In Eye(s) 2 Active lisinopriL (PRINIVIL,ZESTR IL) 20 mg tablet Take 20 mg by mouth. 2 Active magnesium oxide (MAG-OX) 400 mg (241.3 mg mag) tablet 2 Active omeprazole (PriLOSEC) 20 mg capsule Take 20 mg by mouth. Active Stimulant Laxative Plus 8.6-50 mg 3 Active traZODone (DESYREL) 150 mg tablet 150 mg. 2 Active Social History Tobacco Use Types Packs/Day Years Used Date Smoking Tobacco: Never Smokeless Tobacco: Never Tobacco Cessation:Counseling Given: Not Answered Alcohol Use Standard Drinks/Week Comments Not Currently 0 (1 standard drink = 0.6 oz pur e alcohol) Comments Unknown Sex and Gender Information Value Date Recorded Sex Assigned at Not on file Legal Sex Female 11:50 AM EDT Gender Identity Not on file Sexual Orientation Not on file Plan of Treatment Not on file Insurance [id number] [place] [address] [facility] Care Teams Plant Pathology Teacher Relationship Specialty Start Date End Date Angela Calhoun MD [address] [place] [address] PCP - General 10/19/22
--- OUTSIDE RECORDS SUMMARY | 2024-11-28 13:32 | XMS_ITS ---
Author Organization [facility] on Care Team Providers Care Wax Molder Name Role Phone Mindy Salguero Unavailable Unavailable Oanh Parker Unavailable Unavailable Ana Rosa Wheatley Unavailable Unavailable Allergies and adverse reactions Code CodeSystem Substance Reaction Severity StartDate Concern Status 672309949 SNOMED CT Penicillins Unknown 08/03/2020 activ e 7052 RXNORM Morphine Unknown 08/03/2020 active 5640 RXNORM Ibuprofen Unknown 08/03/2020 active Care Team Name Role Address Phone Organization Dates Oanh Parker PCP [address] [place], [address], [place] (Office): : [facility] [place] 08/03/2020 - 08/12/2020 Mindy Salguero Attending Physician [address] [place], [address], [place] (Office): : [facility] [place] 08/03/2020 - 08/12/2020 Ana Rosa Wheatley Attending Physician [address], [place], [address], [place] (Office): [facility] [place] 08/03/2020 - 08/12/2020 Immunizations Immunization Status Vaccine Details Vaccine Code CodeSystem Micheal e Notes TB 2 Step Mantoux Skin Test completed tuberculin skin test; unspecified formulation lotNumber: [id number] expiry: 04/26/2022 Mfg: [employer]of[employer] Given 0.1 ml Left Forearm intradermally Step 1 of Multi-step 98 CVX created date: 08/05/2020 consent date: 08/05/2020 administere d date: 08/05/2020 Mental Status Section Date Assessment Total Score Description 08/12/2020 BIMS 14 cognitively int act CAM 0 No delirium ind icated PHQ-9 04 minimal depress ion Problems Problem # Description Date of onset Resolved Date Code CodeSystem Concern Status 1 ANEMIA, UNSPECIFIED 08/03/[address] active 2 ATHEROSCLEROTIC HEART DISEASE OF [place] CORONARY ARTERY WITHOUT ANGINA PECTORIS 08/03/[id number] active 3 FIBROMYALGIA 08/03/[address] active 4 HYPERLIPIDEMIA, UNSPECIFIED 08/03/[address] active 5 MAJOR DEPRESSIVE DISORDER, SINGLE EPISODE, UNSPECIFIED 08/03/[address] active 6 SPINAL STENOSIS, CERVICAL REGION 08/03/[address] active 7 SPRAIN OF UNSPECIFIED SITE OF RIGHT KNEE, SUBSEQUENT ENCOUNTER 08/03/[address] active Reason for Referral No Reasons for Referral Entered Social History Social History Observation Description Start Date End Date Code Code System Current Smoking Status Tobacco smoking consumption unknown 806163761 SNOMED CT Sex Assigned At Female 1945 28983-7 [facility] Vital Signs Code Code System Vitals Name Values and Units Timing Information 9279-1 LOINC Respiratory Rate Value=18.0 Units=/m in 08/12/2020 8310-5 INC Body Temperature Value=97.2 Units=?? F 08/12/2020 8867-4 LOINC Heart rate Value=84.0 Units=/min 12/2020 8462-4 LOINC Blood Pressure-Diastolic Value=70 Un its=mmHg 08/12/2020 8480-6 LOINC Blood Pressure-Systolic Qzuls=577 Un its=mmHg 08/12/2020 34190-[facility] % BldC Oximetry Value=93.0 Units= % 08/12/2020 57688-1 LOINC Pain Level Value=0.0 08/12/2020 75165-6 LOINC Weight Aiuvi=456.0 Units=Lbs 8302-2 LOINC Height Value=60.0 Units=Inches 08/03/2020
--- OUTSIDE RECORDS SUMMARY | 2024-11-28 13:32 | XMS_ITS | Clinical Summary ---
Author Organization [facility] Address [address] [place] [address] Care Team Providers Care Silk Finisher Name Role Phone Unavailable Primary Care Provider Unavailabl e Allergies Active Allergy Reactions Criticality Noted Date Comments Aspirin Nausea And Vomiting 02/26/2013 Duloxetine Itching 11/17/2016 Ibuprofen Other (See Comments) 06/13/2019 Morphine 08/03/2020 Penicillins Other (See Comments) 06/13/2019 Medications Medication Sig Dispensed Refills Start Date End Date Status albuterol 108 (90 Base) MCG/ACT inhaler Inhale 2 puffs into the lungs. 0 09/24/2021 Active acetaminophen (TYLENOL) 325 MG tablet Take 650 mg by mouth. 0 09/24/2021 Active ascorbic acid (VITAMIN C) 250 MG tablet Take 250 mg by mouth. 0 Active atorvastatin (LIPITOR) tablet 10 mg 0 01/12/2022 Active baclofen (LIORESAL) 10 MG tablet Take 10 mg by mouth. 0 Active clonazePAM (KlonoPIN) 1 MG tablet 0 12/21/2021 Active Diclofenac Sodium 1 % GEL 0 01/01/2022 Active DULoxetine (CYMBALTA) DR capsule 60 mg 0 01/12/2022 Active Aimovig SOAJ 0 12/09/2021 Active ferrous sulfate 325 (65 FE) MG tablet Take 325 mg by mouth. 0 04/21/2020 Active lisinopril (PRINIVIL,ZESTRIL) tablet 20 mg 0 01/12/2022 Active magnesium oxide 400 (240 Mg) MG TABS tablet 0 01/12/2022 Active meclizine (ANTIVERT) 12.5 MG tablet Take 1-2 tablets by mouth. 0 04/21/2020 Active omeprazole (PriLOSEC) 20 MG capsule Take 20 mg by mouth. 0 Active traZODone (DESYREL) 150 MG tablet 0 01/12/2022 Active zolpidem (AMBIEN) 10 MG tablet Take 1 tablet by mouth every night at bedtime as needed. 0 Active busPIRone (BUSPAR) 7.5 MG tablet 0 03/18/2022 Active fluticasone (FLOVENT HFA) 220 MCG/ACT inhaler Inhale 1 puff into the lungs. 0 06/23/2017 Active gabapentin (NEURONTIN) 300 MG capsule Take 300 mg by mouth. 0 04/21/2020 Active magnesium oxide (MAG-OX) 400 MG tablet Take 400 mg by mouth. 0 05/27/2017 Active mirtazapine (REMERON) 7.5 MG tablet 0 12/26/2016 Active Riboflavin (Vitamin B-2) 100 MG TABS Take 1 tablet by mouth. 0 Active Active Problems Problem Noted Date Diagnosed Date Arthritis of knee, left 04/29/2022 Family History Medical History Relation Name Comments Diabetes Mother Diabetes Sister Relation Name Status Comments Mother Sister Social History Tobacco Use Types Packs/Day Years Used Date Smoking Tobacco: Never Assessed Sex and Gender Information Value Date Recorded Sex Assigned at Not on file Gender Identity Not on file Sexual Orientation Not on file Job Start Date Occupation Industry Not on file Not on file Not on file Last Filed Vital Signs Vital Sign Reading Time Taken Comments Blood Pressure - - Pulse - - Temperature - - Respiratory Rate - - Oxygen Saturation - - Inhaled Oxygen Concentration - - Weight 91.6 kg (202 lb) 04/29/2022 9:35 AM EDT Height 121.9 cm (4') 04/29/2022 9:35 AM EDT Body Mass Index 61.64 04/29/2022 9:35 AM EDT Plan of Treatment Health Maintenance Due Date Last Done Comments Hepatitis C Screening 1945 COVID-19 Vaccine (#1) 01/26/1946 Depression Screening 1957 BMI Counseling 1963 Preventative Health Evaluation 1963 Shingrix-Zoster Vaccine (1 o f 2) 1995 Fall Risk Assessment 2010 Osteoporosis Screening (DEXA Scan) 2010 Pneumococcal Vaccine (2 of 2 - PPSV23 or PCV20) 11/17/2017 11/17/2016 RSV Adult > 60+ Yrs or (1 - 1-dose 75+ series) 2020 Influenza Vaccine (#1) 2024 0, 06/17/2016, 04/20/2013 DTap / Tdap / Td (2 - Td or Tdap) 11/17/2026 11/17/2016 Hepatitis B Vaccines Aged Out No long er eligible based on patient's age to complete this topic RSV Ped < 20 months Aged Out No longe r eligible based on patient's age to complete this topic
--- OUTSIDE RECORDS SUMMARY | 2024-11-28 13:32 | XMS_ITS | Clinical Summary ---
Author Organization [facility] Address [address] [place] [address] Care Team Providers Care Pcu Rn Name Role Phone Angela Calhoun MD Primary Care Provider [phone] Allergies Active Allergy Reactions Criticality Noted Date [...] Orientation Not on file Plan of Treatment Health Maintenance Due Date Last Done Comments Hepatitis C Screening 1945 Osteoporosis Screening 1995 Zoster Vaccines (1 of 2) 1995 Pneumococcal Vaccine: 50+ Years (2 of 2 - PPSV23) 01/12/2017 11/17/2016 RSV Vaccine (60+ years old and patients) (1 - 1-dose 75+ series) 2020 COVID-19 Vaccine ( season) 2024 05/11/2022, 11/06/2020 Alcohol/Substance Use Screening 08/08/2024 Depression Screening and Follow-Up 08/08/2024 Health Care Proxy Review 08/08/2024 Social Drivers of Health Annual Screening 08/08/2024 Influenza Vaccine (Season Ended) 2025 05/11/2022, 05/11/2022, 05/14/2020, Additional history exists DTaP,Tdap,and Td Vaccines (2 - Td or Tdap) 11/17/2026 11/17/2016 Hepatitis B Vaccines Aged Out No long er eligible based on patient's age to complete this topic Insurance [facility] [place] [id number] Care Teams Pcu Rn Relationship Specialty Start Date End Date Angela Calhoun MD [facility] [place] [address] PCP - General 10/19/22
--- OUTSIDE RECORDS SUMMARY | 2024-11-28 13:32 | XMS_ITS | Clinical Summary ---
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 Name Role Phone Unavailable Primary Care Provider Unavailabl e Source Comments PLEASE NOTE, if this patient is a minor, it may be UNLAWFUL to discuss sensitive information that is contained in these records (such as FAMILY PLANNING, MENTAL HEALTH or SUBSTANCE ABUSE) with the minor patient's parent or other person without the patient's specific authorization.[facility] Allergies Active Allergy Reactions Criticality Noted Date Comments Aspirin Nausea and Vomiting 02/26/2013 Duloxetine Itching 11/17/2016 Ibuprofen Hives Low 02/26/2013 Penicillins Rash 10/06/2017 Medications albuterol (ACCUNEB) 1.25 mg/3 mL nebulizer solutionIndication s:bronchospasm prevention Take 3 mL by nebulization every 6 (six) hours as needed for wheezing or shortness of breath. Indications: Bronchospasm Prevention 120 mL 0 06/17/20 16 Active albuterol sulfate hfa 90 mcg/actuation inhalerIndications :Mild intermittent asthma without complication (HHS-HCC) Inhale 2 Puffs into the lungs every 4 (four) hours as needed for shortness of breath or wheezing 1 Inhaler 5 11/18/19 17 Active loratadine (CLARITIN) 10 mg tabletIndications: Mild intermittent asthma without complication (HHS-HCC) Take 1 Tab by mouth once daily as needed for allergies 30 Tab 2 11/18/19 17 Active caneIndications:Pr imary osteoarthritis of left foot Dx:M19.072 for a lifetime. Quantity: 1 1 Each 12/29/19 17 Active Mirtazapine 7.5 mg tab 12/27/19 17 Active RESTASIS 0.05 % ophthalmic emulsion INSTIL 1 DROPS INTO EN LOS DOS OJOS DOS VECES AL KATHY 3 11/02/19 17 Active baclofen (LIORESAL) 10 mg tabletIndications: Cervical paraspinal muscle spasm Take 1 Tab by mouth every evening 10 Tab 01/08/20 17 Active lisinopril (PRINIVIL,ZESTRIL) 5 mg tablet Take 1 Tab by mouth once daily 30 Tab 5 03/22/20 17 Active fluticasone (FLOVENT HFA) 220 mcg/actuation inhalerIndications :Mild persistent asthma without complication ([facility]) Inhale 1 Puff into the lungs 2 (two) times daily 1 Inhaler 2 06/23/20 17 Active clonazePAM (KLONOPIN) 0.5 mg tablet TOME NATHANIEL TABLETA POR V?A ORAL DOS VECES AL D?A CUANDO SEA NECESARIO 2 05/27/20 17 Active magnesium oxide (MAG-OX) 400 mg tablet TOME NATHANIEL TABLETA POR V?A ORAL AL ACOSTARSE 3 05/27/20 17 Active topiramate (TOPAMAX) 25 mg tablet TOME NATHANIEL TABLETA POR V?A ORAL AL ACOSTARSE 3 09/20/19 18 Active NATURE'S TEARS 0.1-0.3 % drop PONGA NATHANIEL GOTA EN LOS DOS OJOS RICARDO VECES AL D?A 11 09/01/19 18 Active meclizine 25 mg chewable tabletIndications: Vertigo Place 1 Tab into mouth, chew and swallow 3 (three) times daily as needed for dizziness 90 Tab 2 10/07/19 18 Active omeprazole (PRILOSEC) [address] capsuleIndications :Gastroesophageal reflux disease, esophagitis presence not specified Take 1 Cap by mouth every morning before breakfast Do not crush or chew. 90 Cap 2 11/26/19 18 Active atorvastatin (LIPITOR) 10 mg tablet Take 1 Tab by mouth nightly at bedtime 90 Tab 1 02/02/20 18 Active traZODone (DESYREL) 100 mg tabletIndications: Depression with anxiety TOME NATHANIEL TABLETA POR VIA ORAL AL ACOSTARSE 45 Tab 2 04/10/20 18 Active venlafaxine (EFFEXOR-XR) 37.5 mg 24 hr capsuleIndications :Depression with anxiety TOME NATHANIEL CAPSULA POR VIA ORAL ONCE DAILY WITH BREAKFAST 30 Cap 1 04/24/20 18 Active Active Problems Problem Noted Date Diagnosed Date Muscle cramping with elevated CK - F/U N euro 02/15/2018 Overview (02/15/2018): 01/26/18 - Neuro: Muscle cramping in arms and legs x 4 weeks. Trial prednisone taper. F/U 1 month 02/13/18 - [facility] F/U: labs showed + CAMILA 1:320, CK 492. Dx: Maylgias Tx: Hold prednisone for now, stop Atorvastatin, consider adjusting Gabapentin; plan to recheck all labs: CBC, CMP, ESR, CAMILA< RF, CK, Mag, uric acid, phosp, UA. Referred to rheum for elevated CAMILA and arthritis changes in b/l hands. F/U 1-2 wks Positive CAMILA 02/15/2018 Overview (02/15/2018): 02/09/18 - CAMILA positive 1:320 nucleolar H/O colonoscopy 11/24/2017 Overview (11/24/2017): Colonoscopy 01/09/11 at [facility] Dr Spencer. Findings; relatively normal, some rare diverticulosis. Recommend Miralax for constipation, f/u 6 months. Sleep disorder 02/25/2017 Overview (02/25/2017): [facility] Dr Mcconnell. Ordered PT for myofascial release, consider adding muscle relaxant. 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 Cervical strain 12/16/2016 Overview (12/16/2016): 12/06/16 [facility] ED for STEPHENS and cervical strain. Given Toradol and prednisone x 4 days. Pain of upper abdomen 12/10/2016 Overview (03/15/2018): 12/07/16 Abdominal U/S at [facility] of LUQ is normal. 03/12/18 - [facility] ED c/o abdominal pain x 3 months with n/v/d. Lipase slightly elevated. CT Abdomen/Pelvis: Impression: subtle increased attenuation in the perisigmoid fat, possibly developing diverticulitis. No abscess or free perforation identified. Dx: acute abd pain. Tx: Zofran for nause, Loperamide for diarrhea, bland diet, f/u with PCP in several days. Primary osteoarthritis of left knee 11/24/2016 Overview (02/10/2018): Xray 11/22/16 of L knee at [facility] shows no acute findings. Mild OA 12/22/[address] [facility]. Given cortisone injection. F/u PRN H/O mammogram 11/02/2016 Overview (11/10/2017): Mammogram 11/01/16 at [facility] shows BIRADS 2 Mammo 11/09/17 at [facility] BIRADS 2 Fibromyalgia 10/30/2016 Overview (10/30/2016): 10/18/16 [facility] ED; treated with Tramadol #10. W/u for CP negative Primary osteoarthritis of left foot 06/29/2016 Overview (06/29/2016): 06/22/16 Xray of L foot at [facility] shows interval worsening of degenerative changes, especially across the first MTP joint. Migraine headache - F/U Neuro 04/20/2013 Overview (07/22/2018): 12/06/16 [facility] ED for STEPHENS and cervical strain. Given Toradol and prednisone x 4 days. 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 Stop Amitriptyline, trail Gabapentin 300 mg BID. F/U 1 month 05/03/18 - F/U [facility]: Plan: c/w Gabapentin 300 mg BID, Baclofen PRN, continue Mg 400 mg QHS, Riboflavin. Requests refill of Tramadol - will refill for now. Ordered PT - declines, agrees to increase activity. GERD (gastroesophageal reflux disease) 3 Asthma 04/20/2013 Depression with anxiety 02/28/2013 Overview (11/23/2017): Therapy at [facility], on waiting list of psychiatric eval. HTN (hypertension) 02/28/2013 Dyslipidemia 02/28/2013 Spondylosis of cervical joint 02/28/2013 Resolved Problems Problem Noted Date Diagnosed Date Resolved Date Viral syndrome 08/24/2017 02/15/2018 Overview (08/24/2017): 08/12/17 [facility] ED for diarrhea and cough. CXR negative. Unable to give stool smaple. Tx: Pepcid and Zofran. 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 ([facility]) 02/26/2013 06/17/2016 Immunizations Immunization Administration Dates Next Due INFLUENZA, SEASONAL, INJECTABLE 06/17/2016,04/20 Moderna COVID-19 Vaccine, re d cap blue label, 12+ Primary Series 11/06/2020 PNEUMOCOCCAL CONJUGATE PCV 13 11/17/2016 TDAP 11/17/2016 Social History Tobacco Use Types Packs/Day Years Used Date Smoking Tobacco: Never Smokeless Tobacco: Never Alcohol Use Standard Drinks/Week Comments No 0 (1 standard drink = 0.6 oz pur e alcohol) Social Connections Answer Date Recorded Social Connections and Isolation 0 11/08/2023 Financial Resource Strain Answer Date R ecorded Financial Resource Strain 0 2023 Stress Answer Date Recorded Stress 0 11/08/2023 Physical Activity Answer Date Recorded Physical Activity 0 11/08/2023 Food Insecurity Answer Date Recorded Food 0 11/08/2023 Transportation Needs Answer Date Record ed Transportation 0 11/08/2023 Housing Stability Answer Date Recorded Housing 0 11/08/2023 Safety and Environment Answer Date Kirby rded Safety 0 11/08/2023 Utilities Answer Date Recorded Utilities 0 11/08/2023 Employment Answer Date Recorded Employment 0 11/08/2023 Comments No Sex and Gender Information Value Date Recorded Sex Assigned at Female 06/23/2017 11:21 AM PST Legal Sex Female 7:48 AM PDT Gender Identity Female 06/23/2017 11:21 AM PST Sexual Orientation Straight 06/23/2017 11 :24 AM PST Last Filed Vital Signs Vital Sign Reading Time Taken Comments Blood Pressure 126/67 02/02/2018 2:45 PM EDT Pulse 97 02/02/2018 2:45 PM EDT Temperature 37 ??C (98.6 ??F) 02/02/2018 2:45 PM EDT Respiratory Rate 18 02/02/2018 2:45 PM EDT Oxygen Saturation 97% 02/02/2018 2:45 PM EDT Inhaled Oxygen Concentration - - Weight 97.5 kg (215 lb) 11/23/2017 4:19 PM EDT Height 142.2 cm (4' 8 ) 11/17/2016 10:23 AM EDT Body Mass Index 48.2 11/17/2016 10:23 AM EDT Plan of Treatment Health Maintenance Due Date Last Done Comments Hepatitis C Screening 1945 Tobacco Screening 1945 Medicare Annual Wellness Visit 1963 Imm-Zoster, Recombinant (1 of 2) 1995 Falls Prevention 2010 Imm-Pneumococcal 65+ (2 of 2 - PPSV23) 11/17/2017 11/17/2016 Hypertension Screening (#1) 02/02/2019 [id number] (2 - season) 2024 021 Imm-Influenza (#1) 2024 05/14/2020, 1 08/17/2015, 04/20/2013 Alcohol and Drug Screen 08/08/2024 11/24/19 18, 10/06/2017, 10/06/2017, Additional history exists Depression Annual Screen 08/08/2024 10/06/2017, 06/08 Imm-DTaP/Tdap/Td (2 - Td or Tdap) 11/17/2026 017 Bone Density Screening Completed 08/16/2011 Insurance [facility] Member Subscriber Plan / Payer (Ef fective 2017-Present) Name:Natasha Cooley Relation to Subscriber:Self Name:Natasha Cooley Payer ID:[id number] Group ID:Not on file Type:[employer] Address: [address] [address] [facility] Member Subscriber Plan / Payer (Ef fective 2018-Present) Name:Natasha Cooley Relation to Subscriber:Self Name:Natasha Cooley Payer ID:[id number] Group ID:Not on file Type:[employer] Address: [address] [place] [id number]
== END 2024-11-28 12:03 | disposition home or self-care (01) ==
LOC: HO.HSMS 11:12
PROVIDERS: PCP Internal Medicine; Visit Provider Nurse Practitioner Family
DX: G43.109 Migraine with aura, not intractable, without status migrainosus (principal); G47.9 Sleep disorder, unspecified; R51.9 Headache, unspecified
CPT/HCPCS: 99214

== ENCOUNTER → 2024-11-28 11:11 | Outpatient (BNVA) | payer OTHER, SELFPAY | PROVIDERS: PCP Internal Medicine; Visit Provider Nurse Practitioner Family | DX: G43.109 Migraine with aura, not intractable, without status migrainosus (principal); G47.9 Sleep disorder, unspecified | CPT/HCPCS: 99212 ==

== ENCOUNTER 2025-06-03 09:57 | Outpatient (AMB) | payer OTHER, SELFPAY ==
--- NOTE | 2025-06-03 11:00 | A.OFFVIS_ITS ---
Vital Signs 06/03/25 11:01 Weight 217 lb BP 102/80 Blood Pressure Location Lt brachial Position Sitting Pulse 98 Pulse Source Pulse Oximeter Pulse Oximetry (%) 95 Oxygen Delivery Method Room Air Intake Visit Reasons: 6 month F/U Grain Combiner Required: No Allergies ibuprofen (From Motrin) Allergy (Verified 06/03/25 11:01) Rash Medication List - Last Reconciled 06/03/25 by ANNEL Taylor acetaminophen ER 0 mg PO atorvastatin 10 mg PO DAILY cholecalciferol (vitamin D3) 10 mcg PO DAILY 30 days clonazepam 1 mg PO BID PRN cyclobenzaprine 5 mg PO BID PRN 30 days diclofenac sodium 1% grams topical BID duloxetine mg PO erenumab-aooe (Aimovig Autoinjector) 140 mg subcut ONCE 1 month gabapentin 300 mg PO BID 28 days lisinopril 20 mg PO DAILY magnesium oxide 400 mg PO BEDTIME 28 days meclizine 12.5 - 25 mg (1 - 2 x 12.5 mg) PO TID PRN 30 days omeprazole 40 mg PO DAILY riboflavin (vitamin B2) (Vitamin B-2) 200 mg (2 x 100 mg) PO BID 28 days trazodone ER 150 mg PO DAILY ubrogepant 50 - 100 mg orally at onset of headache, may repeat in 2hrs (max 200mg/day); Prior authorization APPROVED 09/12/24-12/11/25 PRN; 30 days HPI Comments Details: 79-yr-old female presents for a follow-up visit for migraine. Pt denies any significant interval medical changes. She reports she continues to have generalized joint pain, more so in her neck arms and hands. The neck pain is bilateral, but more so on the right posterior lateral side. She denies radiating neck pain. She states she uses ice pack or Tylenol with minimal effect. States in the past, PT but has not ever been helpful. However, she does some simple neck exercises at home which helps some. Patient reports that her migraines attacks have been stable since last visit. She is experiencing two migraine days per week. She reports that Aimovig is still very effective and well tolerated. She has not received as needed Ubrelvy yet, despite having insurance approval. Migraine characteristics include: Pressure, throbbing, shooting pain starts in the right frontal region and runs back through the right synagogue, right occipital, and right neck. A/w nasal congestion before the headache, photophobia, caity blurry vision, watery eyes, red eyes, phonophobia, nausea, right synagogue allodynia and swelling and pulsating. She states she is sleeping well with clonazepam. 02/15/2024, MR/MR head/brain wo con 1. Age related cerebral atrophy and multifocal ischemic white matter lesions compatible with microangiopathy or demyelinating disease are seen. 2. No acute cerebral infarction is seen. 3. No evidence of space occupying mass lesion could be found. 4. No evidence of intracranial hemorrhage. 5. Empty sella syndrome is present. [facility] Medical History (Updated 11/28/23 @ 12:24 by ANNEL Taylor) Migraine with aura, not intractable, without status migrainosus Insomnia High cholesterol Depression Hypertension Arthritis Surgical History History of knee replacement Family History Mother Diabetes Social History Household Members: None [facility] Alcohol intake: never Patient Tobacco Use Status: Never used Tobacco Physical Exam Vital Signs: Last Vital Signs Pulse 98 06/03/25 11:01 BP 102/80 06/03/25 11:01 Pulse Ox 95 06/03/25 11:01 Oxygen Delivery Method Room Air 06/03/25 11:01 Const General: cooperative and no acute distress Orientation/consciousness: patient oriented x3 Resp Effort & Inspection: normal respiratory effort and able to speak in complete sentences Neuro Other: Mild bilateral posterior cervical tightness. Slightly limited cervical range of motion. Bilateral Spurling elicits nonradiating right posterior lateral neck discomfort. BUE MS 5/5, with hand grasp symmetric Steady gait with cane General: patient oriented x3 Cranial nerves: Yes CN's II-XII intact bilaterally Cognition (Neuro): normal cognition Psych Appearance: grossly normal Mental Status: mental status grossly normal Speech and movement: Normal speech and movement present Affect: normal affect Attitude: cooperative Assessment & Plan Assessment & Plan (1) Migraine with aura, not intractable, without status migrainosus: Code(s): G43.109 - Migraine with aura, not intractable, without status migrainosus Category: Medical (2) Sleep difficulties: Code(s): G47.9 - Sleep disorder, unspecified Category: Medical (3) Worsening headaches: Code(s): R51.9 - Headache, unspecified Category: Medical Plan For cervicalgia: Start cyclobenzaprine 5 mg, start with 5 mg daily at bedtime for 1 week, and then 5 mg twice a day as needed. May adjunct Tylenol as needed Continue ice packs and 20 minutes as needed. Rheumatology consult as ordered by PCP. Continue home neck exercises Offered referral to PT or water therapy, patient is not interested at this time. For vertigo: Continue Meclizine 12.5-25mg prn ? For episodic migraine prevention: Continue Aimovig 140mg sc q month- as pt continues to have good reduction in migraine attacks/burden- specifically patient has had greater than 50% reduction in monthly migraine days with starting Aimovig. Continue riboflavin 200 mg twice a day. Continue magnesium oxide 400 mg daily at bedtime. Previous migraine trials: Amitriptyline- not tolerated. Topiramate- not tolerated. Migraine tx contraindications: BBs d/t h/o asthma. ? For acute migraine treatment: Ubrelvy has previously been very effective for patient. Resume Ubrogepant (Ubrelvy) 100mg tab, 1/2 - 1 tab (50-100mg) at onset of headache, may repeat in 2 hours. Max of 2 tabs (200mg) per 24 hours. May adjunct with OTC Tylenol 650-1000mg q 4-6 hours,.Potential adverse effects, include but are not limited to fatigue, nausea, dry mouth, constipation. We will call her pharmacy to clarify why she is not receiving this. When she received Ubrelvy, advised to carry this with her at all times. Advised that she should take it at the very earliest signs of a migraine attack. She may also try the Ubrelvy for her neck pain symptoms. Previous trails- Sumatriptan- ineffective. Rizatriptan- ineffective Fioricet- ineffective. ? For sleep: Continue Clonazepam prn for sleep. Future considerations- repeating sleep study. ? f/u in 6 months or sooner prn. Medications: New cyclobenzaprine 5 mg PO BID PRN 45 tabs 0RF muscle spasm 30 days Changed From ubrogepant (0.5 - 1 x 100 mg) 50 - 100 mg orally at onset of headache, may repat in 2hrs (max 200mg/day); Prior authorization APPROVED 09/12/24-12/11/25 30 days 16 tabs 6RF To ubrogepant 50 - 100 mg orally at onset of headache, may repeat in 2hrs (max 200mg/day); Prior authorization APPROVED 09/12/24-12/11/25 PRN; 16 tabs 6RF migraine headache 30 days Refilled ubrogepant (0.5 - 1 x 100 mg) 50 - 100 mg orally at onset of headache, may repat in 2hrs (max 200mg/day); Prior authorization APPROVED 09/12/24-12/11/25 30 days 16 tabs 6RF magnesium oxide 400 mg PO BEDTIME 28 tabs 11RF 28 days Coding Level of Care Code Est Pt Level 4 (71821) Diagnoses Migraine with aura, not intractable, without status migrainosus G43.109 Sleep difficulties G47.9 Worsening headaches R51.9
[2025-06-03 11:01] VITALS: BP 102/80; PULSE 98; O2SAT 95
--- OUTSIDE RECORDS SUMMARY | 2025-06-03 11:39 | XMS_ITS | Clinical Summary ---
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
--- OUTSIDE RECORDS SUMMARY | 2025-06-03 11:39 | XMS_ITS | Clinical Summary ---
Author Organization [facility] Address [address] [place] [address] Phone Care Team Providers Care Nutritional Services Cook Name Role Phone Celestine Gonzalez MD Primary Care Provider Allergies Active Allergy Reactions Criticality Noted Date Comments Aspirin Nausea And Vomiting 02/26/2013 Duloxetine Itching 11/17/2016 Ibuprofen 06/13/2019 Other Reaction(s): Other (See Comments), Rash/Dermatitis Morphine 08/03/2020 Penicillins 06/13/2019 Other Reaction(s): Hives/Urticaria, Other (See Comments) Surgical History Surgery Date Site/Laterality Comments UPPER GASTROINTESTINAL ENDOSCOPY 01/2000 PROCEDURE: [place] UPPER GI ENDOSCOPY PERFORMED; COMMENT: erosion of antrum and hiatal hernia UPPER GASTROINTESTINAL ENDOSCOPY 08/30/2014 PROCEDURE: [place] UPPER GI ENDOSCOPY PERFORMED; COMMENT: moderate erosive [...] Depression 06/13/2019 DX:Depression; C OMMENT: Psychiatric admission [place] 2012, [facility] DJD (degenerative joint disease) 06/13/2019 DX:DJD [...] hernia History of total right knee replacement 9 DX:History of total right knee replacement Hypertension 06/13/2019 DX:Hypertension Lumbar disc herniation 06/13/2019 DX:Lumbar disc herniation Migraines 06/13/2019 DX:Migraines; CO MMENT: Neuro at [facility] Morbid obesity with BMI of 4 0.0-44.9, adult ([facility] V24, [facility] V28) 06/13/2019 DX:Morbid obesity wit h BMI of 40.0-44.9, adult ([facility]) Osteoporosis 06/13/2019 DX:Osteoporosis Hyperlipidemia 06/13/2019 DX:Hyperlipidemi a [...] 105 11/12/2024 11:03 AM EDT Temperature 36.6 C (97.9 F) 11/12/2024 11:03 AM EDT Respiratory Rate 20 11/12/2024 11:03 AM EDT Oxygen Saturation 96% 11/12/2024 11:03 AM EDT Inhaled Oxygen Concentration - - Weight 90.7 kg (200 lb) 11/12/2024 11:03 AM EDT Height 121.9 cm (4') 11/12/2024 11:03 AM EDT Body Mass Index 61.03 11/12/2024 11:03 AM EDT Plan of Treatment Health Maintenance Due Date Last Done Comments Colorectal Cancer Screening: Colonoscopy 1945 Zoster Vaccines (1 of 2) 1995 Pneumococcal Vaccine: 50+ Years (2 of 2 - PPSV23, PCV20, or PCV21) 01/12/2017 11/17/2016 RSV Immunization Adult Patients (1 - 1-dose 75+ series) 2020 Cholesterol Screening (Lipid Panel) 07/10/2022 Falls Risk Assessment 07/10/2022 Hepatitis C Screening 07/10/2022 Medicare Annual Wellness Visit 07/10/2022 Osteoporosis Screening (Bone Density Screening) 07/10/2022 Social Influencers of Health Screening 07/10/2022 Hypertension/CHF/CAD Annual BMP Blood Test 07/22/2022 Depression Screening 08/08/2024 COVID-19 Vaccine ( - season) 2025 05/11/2022, 11/06/2020 Influenza Vaccine (#1) 2025 4, 05/11/2022, 05/14/2020, Additional history exists DTaP,Tdap,and Td Vaccines (2 - Td or Tdap) 11/17/2026 11/17/2016 HIB Vaccines Aged Out No longer eligi [...] patient's age to complete this topic Insurance [employer] MED[employer] Member Subscriber Plan / Payer (Ef fective 2024-Present) Name:Natasha Cooley Relation to Subscriber:Self Name:Natasha Cooley Payer ID:[id number] Group ID:Not on file Type:Not on file Address: [facility] [address] [id number] Care Teams Nutritional Services Cook Relationship Specialty Start Date End Date Celestine Gonzalez MD [address] [place] [address] Dr Shakir [place] PCP - General 03/27/13
--- OUTSIDE RECORDS SUMMARY | 2025-06-03 11:39 | XMS_ITS | Clinical Summary ---
Author Organization [facility] Address [address] [place] [address] Care Team Providers Care Vending Machine Operator Name Role Phone Angela Calhoun MD Primary Care Provider [phone] Allergies Active Allergy Reactions Criticality Noted Date [...] PPSV23, PCV20, or PCV21) 01/12/2017 11/17/2016 RSV Vaccine (60+ years old and patients) (1 - 1-dose 75+ series) 2020 Alcohol/Substance Use Screening 08/08/2024 Depression Screening and Follow-Up 08/08/2024 Health Care Proxy Review 08/08/2024 Social Drivers of Health Annual Screening 08/08/2024 COVID-19 Vaccine (3 - season) 2025 05/11/2022, 11/06/2020 Influenza Vaccine (#1) 2025 2, 05/11/2022, 05/14/2020, Additional history exists DTaP,Tdap,and Td Vaccines (2 - Td or Tdap) 11/17/2026 11/17/2016 Hepatitis B Vaccines Aged Out No long er eligible based on patient's age to complete this topic Insurance [facility] Care Teams Vending Machine Operator Relationship Specialty Start Date End Date Angela Calhoun MD [address] [place] [address] PCP - General 10/19/22
--- OUTSIDE RECORDS SUMMARY | 2025-06-03 11:39 | XMS_ITS | Clinical Summary ---
Author Organization [facility] Address [address] [place] [address] Care Team Providers Care Audio Installer Name Role Phone Unavailable Primary Care Provider [...] mcg/actuation inhalerIndications :Mild intermittent asthma without complication Inhale 2 Puffs into the lungs every 4 (four) hours as needed for shortness of breath or wheezing 1 Inhaler 5 11/18/19 17 Active loratadine (CLARITIN) 10 mg tabletIndications: Mild intermittent asthma without complication Take 1 Tab by mouth once daily [...] mcg/actuation inhalerIndications :Mild persistent asthma without complication Inhale 1 Puff into the lungs 2 [...] ONCE DAILY WITH BREAKFAST 30 Cap 1 09/17/20 18 Active Active Problems Problem Noted Date Diagnosed Date Muscle cramping with elevated CK - F/U [facility] 02/15/2018 Overview (02/15/2018): 01/26/18 - Neuro: Muscle cramping in arms and legs x 4 weeks. Trial prednisone taper. F/U 1 month 02/13/18 - [facility] F/U: labs showed + [...] colonoscopy 11/24/2017 Overview (11/24/2017): Colonoscopy 01/09/[address] [facility] [address] Spencer. Findings; relatively normal, some rare diverticulosis. Recommend Miralax for constipation, f/u 6 months. Sleep disorder 02/25/2017 Overview (02/25/2017): 02/01/17[facility], Dr Mcconnell. Ordered PT for myofascial release, consider adding muscle relaxant. Sleep study r/o [facility], active care coordination 01/26 Overview (01/26/2017): 16.5 Day time [facility] [employer] [facility] hours/week. Cervical strain 12/16/2016 Overview (12/16/2016): 12/06/16 [facility] ED for STEPHENS and cervical strain. Given Toradol and prednisone x 4 days. Pain of upper abdomen 12/10/2016 Overview (03/15/2018): 12/07/16 Abdominal U/S at [facility] is normal. 03/12/18 - [facility] ED c/o abdominal pain x 3 [...] (02/10/2018): Xray 11/22/16 of L knee at [facility] shows no acute findings. Mild OA 12/22/17 Eval at [facility]. Given cortisone injection. F/u PRN H/O mammogram 11/02/2016 Overview (11/10/2017): Mammogram 11/01/16 at [facility] shows BIRADS 2 Mammo 11/09/17 at [facility] BIRADS 2 Fibromyalgia 10/30/2016 Overview (10/30/2016): 10/18/16 [facility] ED; treated with Tramadol #10. W/u for CP negative Primary osteoarthritis of left foot 06/29/2016 Overview (06/29/2016): 06/22/16 Xray of L foot at [facility] shows interval worsening of degenerative changes, especially across the first MTP joint. Migraine headache - F/U Neuro 04/20/2013 Overview (07/22/2018): 12/06/16 [facility] ED for STEPHENS and cervical strain. Given Toradol and prednisone x 4 days. 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 [...] with anxiety 02/28/2013 Overview (11/23/2017): Therapy at [facility], on waiting list of psychiatric eval. HTN (hypertension) 02/28/2013 Dyslipidemia 02/28/2013 Spondylosis of cervical joint 02/28/2013 Resolved Problems Problem Noted Date Diagnosed Date Resolved Date Viral syndrome 08/24/2017 02/15/2018 Overview (08/24/2017): 08/12/17 [facility] ED for diarrhea and cough. CXR negative. Unable to give stool smaple. Tx: Pepcid and Zofran. Stomatitis 04/20/2013 06/17/2016 Constipation 04/20/2013 06/17/2016 Muscle spasms of neck 02/26/20132015 Sinusitis chronic, frontal 02/26/2013 1 08/17/2015 Dementia arising in the senium and presenium 3 06/17/2016 Immunizations Immunization Administration Dates Next Due [...] 97 02/02/2018 2:45 PM EDT Temperature 37 C (98.6 F) 02/02/2018 2:45 PM EDT Respiratory Rate 18 [...] of 2) 1995 Falls Prevention 2010 Imm-Pneumococcal 50+ (2 of 2 - PCV20 or PCV21) 11/17/2017 11/17/2016 Hypertension Screening (#1) 02/02/2019 Imm-RSV (adult) (1 - 1-dose 75+ series) 2020 Alcohol and Drug Screen 08/08/2024 11/24/19 18, 10/06/2017, 10/06/2017, Additional history exists Depression Annual Screen 08/08/2024 10/06/2017, 06/08 [id number] (2 - season) 2025 021 Imm-Influenza (#1) 2025 05/14/2020, 1 08/17/2015, 04/20/2013 Imm-DTaP/Tdap/Td (2 - Td or Tdap) 11/17/2026 017 Bone Density Screening Completed 08/16/2011 Insurance [facility]
== END 2025-06-03 11:15 | disposition home or self-care (01) ==
LOC: HO.HSMS 09:58
PROVIDERS: PCP Internal Medicine; Visit Provider Nurse Practitioner Family
DX: G43.109 Migraine with aura, not intractable, without status migrainosus (principal); G47.9 Sleep disorder, unspecified; R51.9 Headache, unspecified
CPT/HCPCS: 99214

== ENCOUNTER → 2025-06-03 09:57 | Outpatient (BNVA) | payer OTHER, SELFPAY | PROVIDERS: PCP Internal Medicine; Visit Provider Nurse Practitioner Family | DX: G43.109 Migraine with aura, not intractable, without status migrainosus (principal); G47.9 Sleep disorder, unspecified; R42 Dizziness and giddiness; M54.2 Cervicalgia | CPT/HCPCS: 99212 ==